=== PATIENT | female | born 1975 | race Caucasian/White ===

== ENCOUNTER → 2017-09-09 | Outpatient (CLI) | payer OTHER ==
[2017-09-09 21:02] LABS: BASO # 0.1 10^3/uL (0.0-0.2); BASO % 0.7 % (0.0-1.0); EOS # 0.3 10^3/uL (0.0-0.50); EOS % 2.3 % (0.0-3.0); IMMATURE GRANULOCYTE % 0.6 % (0-0); LYMPH # 3.1 10^3/uL (1.5-4.5); LYMPH % 28.6 % (24.0-44.0); MEAN CORPUSCULAR HEMOGLOBIN 29.5 pg (27.0-33.0); MEAN CORPUSCULAR HGB CONC 32.1 g/dl (32.0-36.5); MEAN CORPUSCULAR VOLUME 91.9 fl (80.0-96.0); MONO # 0.6 10^3/uL (0.0-0.8); MONO % 5.9 % (0.0-5.0); NEUTROPHILS # 6.7 10^3/uL (1.8-7.7); NEUTROPHILS % 61.9 % (36.0-66.0); PLATELET COUNT, AUTOMATED 366 10^3/uL (150-450); RED CELL DISTRIBUTION WIDTH 13.1 % (11.5-14.5); WHITE BLOOD COUNT 10.7 10^3/uL (4.0-10.0)
[2017-09-09 21:04] LABS: ALBUMIN 3.6 GM/DL (3.2-5.2); ALBUMIN/GLOBULIN RATIO 1.13 (1.00-1.93); ALKALINE PHOSPHATASE 87 U/L (45-117); ALT/SGPT 25 U/L (12-78); ANION GAP 6 MEQ/L (8-16); AST/SGOT 16 U/L (7-37); BILIRUBIN,TOTAL 0.2 MG/DL (0.2-1.0); BLOOD UREA NITROGEN 9 MG/DL (7-18); CALCIUM LEVEL 8.9 MG/DL (8.5-10.1); CARBON DIOXIDE LEVEL 28 MEQ/L (21-32); CHLORIDE LEVEL 107 MEQ/L (98-107); CREATININE FOR GFR 0.76 MG/DL (0.55-1.02); FERRITIN 114 NG/ML (8-252); GLOMERULAR FILTRATION RATE > 60.0 (>58); GLUCOSE, FASTING 79 MG/DL (70-105); MAGNESIUM LEVEL 2.1 MG/DL (1.8-2.4); PERCENT SATURATION 18.5 % (13.2-45.0); PHOSPHORUS LEVEL 3.4 MG/DL (2.5-4.9); SODIUM LEVEL 141 MEQ/L (136-145); TOTAL IRON BINDING CAPACITY 259 UG/DL (250-450); TOTAL PROTEIN 6.8 GM/DL (6.4-8.2)
[2017-09-09 21:12] LABS: VITAMIN B12 LEVEL > 2000 PG/ML (247-911)
== END ==
LOC: M LRY 14:08
PROVIDERS: ATTEND Surgery
DX: K91.2 Postsurgical malabsorption, not elsewhere classified (principal); Z98.84 Bariatric surgery status; E55.9 Vitamin D deficiency, unspecified

== ENCOUNTER → 2017-09-09 | Outpatient (REF) | payer OTHER | LOC: M LAB REF 09:47 | PROVIDERS: ATTEND Surgery | DX: K91.2 Postsurgical malabsorption, not elsewhere classified (principal); Z98.84 Bariatric surgery status; E55.9 Vitamin D deficiency, unspecified ==

== ENCOUNTER → 2018-01-16 | Outpatient (REF) | payer OTHER ==
[2018-01-16 14:38] LABS: FOLLICLE STIMULATING HORMONE 6.3 mIU/mL; LUTEINIZING HORMONE 5.5 mIU/mL
[2018-01-16 15:03] LABS: FREE T4 0.81 NG/DL (0.76-1.46)
[2018-01-18 00:07] LABS: TESTOSTERONE FREE (DIRECT) 2.1 pg/mL (0.0-4.2)
== END ==
LOC: M LAB REF 13:32
DX: N92.1 Excessive and frequent menstruation with irregular cycle (principal); E66.09 Other obesity due to excess calories

== ENCOUNTER → 2018-01-24 | Outpatient (CLI) | payer OTHER | LOC: M LRY 18:43 | DX: M25.511 Pain in right shoulder (principal) | CPT/HCPCS: 73030 ==

== ENCOUNTER 2018-09-19 19:49 | Emergency (ER) | payer OTHER ==
[2018-09-19] MEDS: KETOROLAC 30 MG/ML VIAL (J1885) IV (20:18)
[2018-09-19] MEDS: ONDANSETRON 4MG/2ML VIAL (J2405) IV (20:18)
[2018-09-19 20:27] LABS: BASO # 0.1 10^3/uL (0.0-0.2); BASO % 0.5 % (0.0-1.0); EOS # 0.3 10^3/uL (0.0-0.50); EOS % 1.4 % (0.0-3.0); HEMATOCRIT 46.8 % (36.0-47.0); HEMOGLOBIN 15.1 g/dl (12.0-15.5); IMMATURE GRANULOCYTE % 0.7 % (0-3.0); LYMPH # 3.2 10^3/uL (1.5-4.5); LYMPH % 17.8 % (24.0-44.0); MEAN CORPUSCULAR HEMOGLOBIN 29.4 pg (27.0-33.0); MEAN CORPUSCULAR HGB CONC 32.3 g/dl (32.0-36.5); MEAN CORPUSCULAR VOLUME 91.1 fl (80.0-96.0); MONO # 0.8 10^3/uL (0.0-0.8); MONO % 4.7 % (0.0-5.0); NEUTROPHILS # 13.5 10^3/uL (1.8-7.7); NEUTROPHILS % 74.9 % (36.0-66.0); PLATELET COUNT, AUTOMATED 379 10^3/uL (150-450); RED BLOOD COUNT 5.14 10^6/uL (4.00-5.40); RED CELL DISTRIBUTION WIDTH 13.1 % (11.5-14.5)
[2018-09-19 20:50] LABS: CONTROL LINE HCG INT CTR LINE PRESENT; HCG, SERUM QUALITATIVE NEGATIVE (NEGATIVE)
[2018-09-19 20:52] LABS: CALCIUM OXALATE CRYSTALS RFX LARGE; KETONE, URINE AUTO RFX NEGATIVE (NEGATIVE); LEUKOCYTE ESTERASE UR AUTO RFX NEGATIVE (NEGATIVE); MUCUS, URINE RFX SMALL (NEGATIVE); RBC, URINE AUTO RFX 173 /HPF (0-3); SPECIFIC GRAVITY UR AUTO RFX 1.016 (1.002-1.035); SQUAM EPITHELIAL CELL UR AURFX 5 /HPF (0-6); WBC, URINE AUTO RFX 5 /HPF (0-3)
[2018-09-19 20:58] LABS: ALBUMIN 3.9 GM/DL (3.2-5.2); ALBUMIN/GLOBULIN RATIO 1.11 (1.00-1.93); ALKALINE PHOSPHATASE 76 U/L (45-117); ALT/SGPT 24 U/L (12-78); ANION GAP 9 MEQ/L (8-16); AST/SGOT 18 U/L (7-37); BILIRUBIN,DIRECT < 0.1 MG/DL (0.0-0.2); BILIRUBIN,TOTAL 0.2 MG/DL (0.2-1.0); BLOOD UREA NITROGEN 10 MG/DL (7-18); CALCIUM LEVEL 9.2 MG/DL (8.5-10.1); CARBON DIOXIDE LEVEL 25 MEQ/L (21-32); CHLORIDE LEVEL 108 MEQ/L (98-107); CREATININE FOR GFR 1.01 MG/DL (0.55-1.30); GLOMERULAR FILTRATION RATE > 60.0 (>58); GLUCOSE, FASTING 136 MG/DL (70-100); LIPASE 127 U/L (73-393); NITRITE, URINE AUTO RFX POSITIVE (NEGATIVE); POTASSIUM SERUM 3.7 MEQ/L (3.5-5.1); SODIUM LEVEL 142 MEQ/L (136-145); TOTAL PROTEIN 7.4 GM/DL (6.4-8.2)
[2018-09-19] MEDS: CIPROFLOXACIN 500 MG TAB PO (22:03)
[2018-09-19] MEDS: PERCOCET 5MG/325MG TAB PO (22:22)
== END 2018-09-19 22:36 | disposition home or self-care (01) ==
LOC: M ED 19:49
DX: N20.1 Calculus of ureter (principal); N13.30 Unspecified hydronephrosis; N39.0 Urinary tract infection, site not specified; N23 Unspecified renal colic; R03.0 Elevated blood-pressure reading, without diagnosis of hypertension; R11.0 Nausea; K21.9 Gastro-esophageal reflux disease without esophagitis; J45.909 Unspecified asthma, uncomplicated; Z98.84 Bariatric surgery status; Z88.2 Allergy status to sulfonamides; Z79.899 Other long term (current) drug therapy
CPT/HCPCS: J2405

== ENCOUNTER → 2018-09-19 | Outpatient (REF) | payer OTHER | LOC: M SFHCLERA 17:58 | DX: N39.0 Urinary tract infection, site not specified (principal) ==

== ENCOUNTER → 2018-09-26 | Outpatient (REF) | payer OTHER ==
[2018-09-26 18:56] LABS: APPEARANCE, URINE HAZY (CLEAR); BACTERIA, URINE AUTO 1+ (NEGATIVE); BILIRUBIN, URINE AUTO NEGATIVE (NEGATIVE); BLOOD, URINE BLOOD NEGATIVE (NEGATIVE); CALCIUM OXALATE CRYSTALS SMALL; COLOR, URINE YELLOW (YELLOW); GLUCOSE, URINE (UA) AUTO NEGATIVE (NEGATIVE); KETONE, URINE AUTO NEGATIVE (NEGATIVE); LEUKOCYTE ESTERASE, URINE AUTO NEGATIVE (NEGATIVE); MUCUS, URINE SMALL (NEGATIVE); NITRITE, URINE AUTO NEGATIVE (NEGATIVE); PROTEIN, URINE AUTO NEGATIVE (NEGATIVE); RBC, URINE AUTO 5 /HPF (0-3); SPECIFIC GRAVITY URINE AUTO 1.012 (1.002-1.035); SQUAMOUS EPITHELIAL CELL UR AU 0 /HPF (0-6); UROBILINOGEN, URINE AUTO 0.2 mg/dL (0.0-2.0); WBC, URINE AUTO 1 /HPF (0-3)
== END ==
LOC: M SMT 17:20
DX: N13.2 Hydronephrosis with renal and ureteral calculous obstruction (principal)
CPT/HCPCS: 81001

== ENCOUNTER → 2019-01-27 | Outpatient (CLI) | payer OTHER ==
[~2019-01-27] MED LIST: AZO-95TA3 PO; CIPR-249 PO; FLOM0.4C39 PO; MACR100C43 PO; OXYC1TAB15 PO; PERC5TAB12 PO; VENTAER INH; ZOLO50TA PO; [UNRECOGNIZED DRUG - OTHER] PO
--- NOTE | 2019-01-28 08:59 | REPMRS ---
Patient History The patient states she had a clinical breast exam in December 2018.No known family history of cancer. Reductions of both breasts, 2001. Taking hormonal contraceptives for 4 years 6 months. 3D TOMOSYNTHESIS WAS PERFORMED. Digital Mammo Screening Bilat: January 27, 2019 - Exam #: [id number] Bilateral CC and MLO view(s) were taken. Technologist: Liyah Gutierrez, Technologist Prior study comparison: May 31, 2016, digital woman screen mammo, performed at [facility]. January 06, 2015, digital woman screen mammo, performed at [facility]. FINDINGS: There are scattered fibroglandular densities. There has been no change in the appearance of the mammogram from the prior studies. There is a mild amount of residual fibroglandular tissue which is fairly symmetric. There is no interval development of dominant mass, architectural distortion, or clustered microcalcification suggestive of malignancy. Assessment: BI-RADS/ACR category 1 mammogram. Negative Mammogram. Recommendation Routine screening mammogram in 1 year (for women over age 40). This mammogram was interpreted with the aid of an FDA-approved computer-aided dectection system. Electronically Signed By: Reinier Vidales MD 01/28/19 [id number]
== END ==
LOC: M RAD 16:58
PROVIDERS: ATTEND Obstetrics & Gynecology
DX: Z12.31 Encounter for screening mammogram for malignant neoplasm of breast (principal); Z79.3 Long term (current) use of hormonal contraceptives

== ENCOUNTER 2019-04-27 01:19 | Day surgery (SDC) | payer OTHER ==
[~2019-04-27] VITALS: Ht 162.6 cm; Wt 95.1 kg
[2019-04-27] MEDS ORDERED: NS 1,000 ML IV ONE (02:15)
[2019-04-27] MEDS ORDERED: METOCLOPRAMIDE INJ 10MG/2ML VIAL (J2765) IV ONE (02:15)
[2019-04-27] MEDS ORDERED: MORPHINE 4 MG/ML 1ML VIAL/SYRINGE (J2270) IV ONE ×2 (02:15→07:00)
[2019-04-27 02:39] LABS: BASO # 0.1 10^3/uL (0.0-0.2); BASO % 0.5 % (0.0-1.0); EOS # 0.3 10^3/uL (0.0-0.50); EOS % 1.9 % (0.0-3.0); HEMATOCRIT 43.2 % (36.0-47.0); HEMOGLOBIN 14.2 g/dl (12.0-15.5); LYMPH # 3.7 10^3/uL (1.5-4.5); LYMPH % 23.9 % (24.0-44.0); MEAN CORPUSCULAR HEMOGLOBIN 30.3 pg (27.0-33.0); MEAN CORPUSCULAR HGB CONC 32.9 g/dl (32.0-36.5); MEAN CORPUSCULAR VOLUME 92.3 fl (80.0-96.0); MONO % 6.7 % (0.0-5.0); NEUTROPHILS # 10.3 10^3/uL (1.8-7.7); PLATELET COUNT, AUTOMATED 356 10^3/uL (150-450); RED BLOOD COUNT 4.68 10^6/uL (4.00-5.40); WHITE BLOOD COUNT 15.5 10^3/uL (4.0-10.0)
[2019-04-27 02:45] LABS: ALBUMIN 3.6 GM/DL (3.2-5.2); ALT/SGPT 21 U/L (12-78); BILIRUBIN,DIRECT < 0.1 MG/DL (0.0-0.2); BILIRUBIN,TOTAL 0.2 MG/DL (0.2-1.0); BLOOD UREA NITROGEN 12 MG/DL (7-18); CALCIUM LEVEL 9.2 MG/DL (8.5-10.1); CARBON DIOXIDE LEVEL 24 MEQ/L (21-32); CHLORIDE LEVEL 108 MEQ/L (98-107); CREATININE FOR GFR 0.93 MG/DL (0.55-1.30); GLOMERULAR FILTRATION RATE > 60.0 (>58); GLUCOSE, FASTING 112 MG/DL (70-100); LIPASE 152 U/L (73-393); POTASSIUM SERUM 3.3 MEQ/L (3.5-5.1); SODIUM LEVEL 142 MEQ/L (136-145); TOTAL PROTEIN 7.2 GM/DL (6.4-8.2)
[2019-04-27 02:54] LABS: APPEARANCE, URINE HAZY (CLEAR); BACTERIA, URINE AUTO NEGATIVE (NEGATIVE); BILIRUBIN, URINE AUTO NEGATIVE (NEGATIVE); BLOOD, URINE BLOOD NEGATIVE (NEGATIVE); COLOR, URINE YELLOW (YELLOW); GLUCOSE, URINE (UA) AUTO NEGATIVE (NEGATIVE); KETONE, URINE AUTO NEGATIVE (NEGATIVE); LEUKOCYTE ESTERASE, URINE AUTO NEGATIVE (NEGATIVE); NITRITE, URINE AUTO NEGATIVE (NEGATIVE); PROTEIN, URINE AUTO NEGATIVE (NEGATIVE); RBC, URINE AUTO 3 /HPF (0-3); SPECIFIC GRAVITY URINE AUTO 1.011 (1.002-1.035); SQUAMOUS EPITHELIAL CELL UR AU 0 /HPF (0-6); UROBILINOGEN, URINE AUTO 0.2 mg/dL (0.0-2.0); WBC, URINE AUTO 0 /HPF (0-3)
[2019-04-27] MEDS ORDERED: KETOROLAC 30 MG/ML VIAL (J1885) IV ONE (03:00)
--- NOTE | 2019-04-27 03:31 | REPVR ---
EXAM: US Abdomen Limited, Right Upper Quadrant EXAM DATE/TIME: 04/27/2019 2:53 AM CLINICAL HISTORY: 44 years old, female; Abdominal pain; Acute; Additional info: Biliary/gb eval TECHNIQUE: Imaging protocol: Real-time ultrasound of the abdomen with image documentation. Examination was focused on the right upper quadrant. COMPARISON: GALLBLADDER US 11/01/2014 7:23 AM FINDINGS: Liver: Normal. No masses. Gallbladder: Gallbladder sludge, stones, and positive sonographic Pantoja's sign. Gallbladder wall is normal measuring 2.7 mm. No pericholecystic fluid. Common bile duct: Common bile duct is upper limits of normal measuring 6 mm. Pancreas: Visualized pancreas is unremarkable. Right kidney: Right kidney is unremarkable measuring 10.1 cm. IMPRESSION: Gallbladder sludge, stones, and positive sonographic Pantoja's sign. Gallbladder wall is normal measuring 2.7 mm. No pericholecystic fluid. Electronically signed by: Leyla Hancock On 04/27/2019 03:31:54 AM
[2019-04-27] MEDS ORDERED: MORPHINE 10 MG/ML 1ML VIAL (J2270) IV ONE (04:00)
[2019-04-27] MEDS ORDERED: MULTCAP PO (04:35)
[2019-04-27] MEDS ORDERED: MORPHINE 4 MG/ML 1ML VIAL/SYRINGE (J2270) IV PRN (07:45)
[2019-04-27] MEDS ORDERED: ONDANSETRON 4MG/2ML VIAL (J2405) IV PRN ×2 (07:45→22:15)
[2019-04-27] MEDS ORDERED: NORCO, ANEXSIA 5/325MG TABLET (HYDROcodone/ACETAMINOPHEN) PO PRN (07:45)
[2019-04-27] MEDS ORDERED: MORPHINE 4 MG/ML 1ML VIAL/SYRINGE (J2270) As Ordered ONE (08:00)
[2019-04-27] MEDS: LR 1,000 ML IV SCH ×3 (08:27→23:41)
[2019-04-27] MEDS ORDERED: UNASYN 3 GM VIAL As Ordered ONE (08:32)
[2019-04-27] MEDS: AMPICILLIN SOD/SULBACTAM SOD 3 GM in D5W MINI-BAG PLUS 100 ML IV SCH ×3 (08:44→20:00)
--- NOTE | 2019-04-27 09:47 | HPEPDOC ---
General Surgery H&P Date of Admission Apr 27, 2019 Attending Physician: NICOLLE WESLEY MD History and Physical CHIEF COMPLAINT: abdominal pain HISTORY OF PRESENT ILLNESS: Patient seen in the emergency department where she presented at about 2 in the morning ongoing abdominal discomfort, nausea and at least one episode of vomiting. She has a 4 or 5 year history of upper scopic gastric bypass surgery. She denies any ongoing problems with the gastric bypass. Her weight has been stable and she is gaining a little bit since the surgery. She was in her usual state of health up until about 2 in the afternoon when she started having some gas type pain as well as nausea which progressed to an epigastric and right-sided abdominal discomfort with radiation to her right back/lower scapular area and intensified through the evening and has become constant. She denies fevers or chills. She reports nausea and 1 episode of vomiting. She denies any prior episodes of biliary colic type pain or discomfort with fatty foods. In the emergency room she was evaluated and found to have evidence for gallstones as well as leukocytosis. ALLERGIES: Please see below. HOME MEDICATIONS: Please see below. PAST MEDICAL HISTORY: 1. migraine headaches. 2. gastroesophageal reflux 3. asthma 4. obesity 5. depression 6. anxiety PAST SURGICAL HISTORY: 1. Gastric Bypass 2. Breast Reduction. PERSONAL/SOCIAL HISTORY: Denies smoking, alcohol use, or recreational drug use. REVIEW OF SYSTEMS: GENERAL: Denies chills, fatigue, fever, reports mild weight gain. HEENT: Denies blurred vision and double vision. Denies ear symptoms. Denies hoarseness. NECK: Denies any neck pain. CARDIOVASCULAR: Denies chest pain and palpitations. MUSCULOSKELETAL: Denies arthralgias, back pain and thrombophlebitis. SKIN: Denies rash. NEUROLOGIC: Reports history of migraine headaches none recently. PSYCHIATRIC: Reports anxiety and depression on medication. ENDOCRINE: Denies thyroid disease. HEMATOLOGY/ONCOLOGY: Denies any bleeding or clotting disorder. HEART: Denies any chest pains, palpitations, paroxysmal dyspnea, orthopnea. PULMONARY: Denies chronic cough, dyspnea and wheezing. GASTROINTESTINAL: See HPI. GENITOURINARY: Denies dysuria, frequency, hematuria and nocturia. ENDOCRINE: Denies polydipsia, polyphagia, polyuria, heat or cold intolerance. INFECTIOUS: Denies any recent upper respiratory tract infection, UTI, need for use of antibiotics. NUTRITION: Reports good appetite. PHYSICAL EXAMINATION: VITAL SIGNS: Please see below. GENERAL APPEARANCE: Patient seen laying down on the stretcher in the emergency room, appears tired, mildly uncomfortable. On presentation reports pain of 10 out of 10. Thiamine I saw her back in the morning reports discomfort or pain at about 4 out of 10.. Awake, alert, oriented. HEENT: Normocephalic, atraumatic. [place] palpebral conjunctivae. Anicteric sclerae. Lips moist. CHEST: No chest wall abnormalities. Normal respiratory motion/effort. NECK: Supple. No thyromegaly. No lymphadenopathies. LUNGS: Lung sounds are clear to auscultation bilaterally. No wheezing appreciated. HEART: No chest wall abnormalities. Heart rate and rhythm are regular with no murmurs. ABDOMEN: Abdomen is obese, soft, slightly rounded. No hepatosplenomegaly. No umbilical or groin herniations, nondistended. She has a lower appendectomy incision that slightly scarred in but no incisional hernia. She has laparoscopic port sites from the gastric bypass surgery is well-healed. She is tender on palpation of the right subcostal area. No definite Pantoja's sign but has some mild guarding. SKIN: Warm, moist. EXTREMITIES: Extremities have no deformities. No edema identified. NEUROLOGICAL: Awake, alert, oriented. ANCILLARIES: . LABORATORY DATA: Please see below. MICROBIOLOGY: Please see below. IMAGING: US Abdomen Gallbladder sludge, stones, and positive sonographic Pantoja's sign. Gallbladder wall is normal measuring 2.7 mm. No pericholecystic fluid. IMPRESSION AND PLAN: Cholelithiasis with Acute Cholecystitis Gastric Bypass Status She has either severe biliary colic attack or early acute cholecystitis at this point she still remains symptomatic. She does have leukocytosis of 16,000. Her LFTs are normal. Her ultrasound demonstrates presence of sludge and stone. Assigned ultrasound was performed still no gallbladder wall thickening that she was positive for sonographic Pantoja sign. This goes along with the story of possibly early acute cholecystitis. I will keep her in the hospital and start her on antibiotics. I will give her Unasyn 3 g IV every 6 hours. I talked to her about performing laparoscopic cholecystectomy at this time during this admission. Ideally would want to do within the next 24 hours to limit the time of the inflammation. I spoke to her about risks and benefits of performing the surgery especially with her gastric bypass status, that the second portion of the duodenum was excluded and usually we have not able to perform a straightforward endoscopy, ERCP if need be in case of: Bile duct stone or bile duct injury. I expect some acute inflammation at the wall of the gallbladder during surgery which may make the procedure slightly higher risk for bleeding and also for bile duct injury. Patient voices understanding and we will proceed with cholecystectomy and a suitable time during this admission. For now we will keep her nothing by mouth and proceed with IV antibiotics and IV fluid hydration.. I have seen consent to perform laparoscopic cholecystectomy for her. Vital Signs Vital Signs Date Time Temp Pulse Resp B/P (MAP) Pulse Ox O2 Delivery O2 Flow Rate FiO2 04/27/19 05:34 55 96 04/27/19 05:30 18 119/69 (86) 04/27/19 04:13 97.3 04/27/19 01:25 Room Air Laboratory Data Labs 24H Laboratory Tests 2 04/27/19 01:55: Immature Granulocyte % (Auto) 1.0, White Blood Count 15.5H, Red Blood Count 4.68, Hemoglobin 14.2, Hematocrit 43.2, Mean Corpuscular Volume 92.3, Mean Corpuscular Hemoglobin 30.3, Mean Corpuscular Hemoglobin Concent 32.9, Red Cell Distribution Width 13.2, Platelet Count 356, Neutrophils (%) (Auto) 66.0, Lympho cytes (%) (Auto) 23.9L, Monocytes (%) (Auto) 6.7H, Eosinophils (%) (Auto) 1.9, Basophils (%) (Auto) 0.5, Neutrophils # (Auto) 10.3H, Lymphocytes # (Auto) 3.7, Monocytes # (Auto) 1.0H, Eosinophils # (Auto) 0.3, Basophils # (Auto) 0.1, Nucleated Red Blood Cells % (auto) 0.0, Anion Gap 10, Glomerular Filtration Rate > 60.0, Calcium Level 9.2, Aspartate Amino Transf (AST/SGOT) 13, Alanine Aminotransferase (ALT/SGPT) 21, Alkaline Phosphatase 84, Total Bilirubin 0.2, Direct Bilirubin < 0.1, Total Protein 7.2, Albumin 3.6, Albumin/Globulin Ratio 1.00, Lipase 152 04/27/19 02:12: Urine Appearance HAZY, Urine Color YELLOW, Urine pH 6.0, Urine Specific [place] 1.011, Urine Protein NEGATIVE, Urine Glucose (UA) NEGATIVE, Urine Ketones NEGATIVE, Urine Urobilinogen 0.2, Urine Bilirubin NEGATIVE, Urine Leukocyte Esterase NEGATIVE, Urine Blood NEGATIVE, Urine Nitrite NEGATIVE, Urine WBC (Auto) 0, Urine RBC (Auto) 3, Urine Hyaline Casts (Auto) 0, Urine Bacteria (Auto) NEGATIVE, Urine Squamous Epithelial Cells 0, Urine Sperm (Auto) CBC/BMP Laboratory Tests 04/27/19 01:55 Red Blood Count 4.68, Mean Corpuscular Volume 92.3, Mean Corpuscular Hemoglobin 30.3, Mean Corpuscular Hemoglobin Concent 32.9, Red Cell Distribution Width 13.2, Neutrophils (%) (Auto) 66.0, Lymphocytes (%) (Auto) 23.9 L, Monocytes (%) (Auto) 6.7 H, Eosinophils (%) (Auto) 1.9, Basophils (%) (Auto) 0.5, Neutrophils # (Auto) 10.3 H, Lymphocytes # (Auto) 3.7, Monocytes # (Auto) 1.0 H, Eosinophils # (Auto) 0.3, Basophils # (Auto) 0.1 Microbiology Microbiology 04/27/19 Urine Culture, Received Pending Home Medications Scheduled Multivitamin (Multivitamins) 1 Each Capsule, 1 CAP PO DAILY, (Reported) Sertraline Hcl (Zoloft) 50 Mg Tab, 100 MG PO QHS, (Reported) Allergies Coded Allergies: Sulfa (Sulfonamide Antibiotics) (Verified Allergy, Intermediate, 04/27/19) rash A-FIB/CHADSVASC A-FIB History Current/History of A-Fib/PAF?: No Current PO Anticoag Therapy: NICOLLE Ballesteros MD Apr 27, 2019 07:26
[2019-04-27 11:02] LABS: URINE PREG TEST NEGATIVE (NEGATIVE)
[2019-04-27 12:45] VITALS: BP 134/82
[2019-04-27 16:30] VITALS: BP 117/73
[2019-04-27] MEDS ORDERED: FLUORESCEIN 10% (100MG/ML) 5 ML VIAL As Ordered ONE (19:18)
[2019-04-27] MEDS ORDERED: BUPIVACAINE HCL 0.25% 30 ML VIAL As Ordered ONE (19:18)
[2019-04-27] MEDS ORDERED: LIDOCAINE 1% SDV INJ 30 ML VIAL As Ordered ONE (19:18)
[2019-04-27] MEDS ORDERED: PROPOFOL 200 MG/20 ML VIAL As Ordered ONE (19:53)
[2019-04-27] MEDS ORDERED: ONDANSETRON 4MG/2ML VIAL (J2405) As Ordered ONE ×2 (19:53→22:27)
[2019-04-27] MEDS ORDERED: ROCURONIUM BROMIDE 50 MG/5 ML VIAL As Ordered ONE ×2 (19:53→21:07)
[2019-04-27] MEDS ORDERED: KETAMINE HCL 200 MG/20 ML VIAL As Ordered ONE (19:53)
[2019-04-27] MEDS ORDERED: fentaNYL 250 MCG/5 ML INJECTION (J3010) As Ordered ONE (19:53)
[2019-04-27] MEDS ORDERED: KETOROLAC 60 MG/2 ML VIAL (J1885) As Ordered ONE (19:53)
[2019-04-27] MEDS ORDERED: LIDOCAINE 2% INJ 100 MG/5 ML SDV (FOR ANES.) As Ordered ONE (19:53)
[2019-04-27] MEDS ORDERED: MIDAZOLAM INJ 2 MG/2 ML VIAL (J2250) As Ordered ONE (19:53)
[2019-04-27] MEDS ORDERED: SERTRALINE HCL 50 MG TAB PO SCH (21:00)
[2019-04-27] MEDS ORDERED: ACETAMINOPHEN 1000MG 100ML IV BTL (OFIRMEV) (J0131 PER 10MG) As Ordered ONE (21:01)
[2019-04-27] MEDS ORDERED: NEOSTIGMINE 10 MG/10 ML VIAL (J2710) As Ordered ONE (21:22)
[2019-04-27] MEDS ORDERED: GLYCOPYRROLATE INJ 0.2 MG/ML 2 ML VIAL As Ordered ONE ×2 (21:22→21:23)
[2019-04-27] MEDS ORDERED: LR 1,000 ML IV SCH (22:15)
[2019-04-27] MEDS ORDERED: PERCOCET 5MG/325MG TAB PO PRN (22:15)
[2019-04-27] MEDS ORDERED: fentaNYL 100 MCG/2 ML INJECTION (J3010) IV PRN (22:15)
[2019-04-27] MEDS ORDERED: HYDROMORPHONE HCL 0.5 MG/ 0.5 ML SYRINGE (J1170 PER 1) IV PRN (22:15)
[2019-04-27] MEDS ORDERED: METOCLOPRAMIDE INJ 10MG/2ML VIAL (J2765) As Ordered ONE (22:50)
[2019-04-27] MEDS ORDERED: METOCLOPRAMIDE INJ 10MG/2ML VIAL (J2765) IV PRN (23:00)
[2019-04-27] MEDS ORDERED: PERCOCET 5MG/325MG TAB As Ordered ONE (23:10)
[2019-04-27 23:45] VITALS: BP 142/74
[2019-04-28] VITALS (7 sets, daily range): BP systolic 118–147; BP diastolic 58–81
[2019-04-28] MEDS: AMPICILLIN SOD/SULBACTAM SOD 3 GM in D5W MINI-BAG PLUS 100 ML IV SCH ×3 (01:53→13:22)
--- NOTE | 2019-04-28 05:48 | ROOPDOC ---
[facility] Report Of Operation Report of Operation DATE OF PROCEDURE: 04/27/19 PREPROCEDURE DIAGNOSES: Acute Cholecystitis. POSTPROCEDURE DIAGNOSES: Acute Cholecystitis. PROCEDURE: Robotic Assisted Laparoscopic Cholecystectomy. SURGEON: Antonino Rebolledo MD IP ARCHITECT: ANESTHESIA: General Anesthesia. ESTIMATED BLOOD LOSS: Approximately 50 mL. COMPLICATIONS: none. REMARKS: 44 year old female admitted overnight for sudden onset of right upper quadrant pain. PROCEDURE NOTE: markedly distended gallbladder with moderate acute inflammarion of the gallbladder wall, remains thin walled but a lot of perichoelcystic fluid and perichoelcystic wall edema. I used ICG dye to try to visualize course of the cystic duct but with the acute cholecystitis/cystic duct obstruction, cystic duct does not illuminate well with firefly. DESCRIPTION OF PROCEDURE: Patient was given a been receiving Unasyn 3 g IV every 6 hrs for Acute Cholecystitis. . She was given a dose of ICG 5 mg IV with 10 mL NS flush 45 minutes prior to the procedure. She was brought to the operating room, laid supine on the table, compression boots placed for DVT prophylaxis. General endotracheal anesthesia started. Her abdomen then prepped and draped in usual sterile fashion. We paused for a surgical timeout using both pre-incision safety checklist to verify correct patient, procedure site and additional clinical information prior to beginning the procedure. Entry to the abdomen done through a small incision at the left upper quadrant area. A Veress needle is inserted on a controlled fashion. CO2 insufflation started to pressure 15 mmHg. Using the same incision a 8 mm optical trocar was then placed under direct vision of laparoscope. The insertion site was inspected for injury and none was found. Patient was then positioned on a reverse trendelenburg position with her right side tilted up to further expose the gallbladder and gallbladder fossa and retract the bowels away from the area. I then placed 3 working ports under direct vision just to the left of the umbilicus and in a straight line at the right midclavicular area and right anterior axillary line in an oblique direction to triangulate the gallbladder and line up the instrument ports. The da Taylor Xi robotic tower was then maneuvered in place, the trochars were docked onto the robotic arms, the camera and instruments and up for the procedure. Operative findings: On entry was noted that her gallbladder appears tensely distended and acutely inflamed with edematous gallbladder wall with bile staining of the wall. There is also serous fluid surrounding the gallbladder. There is some both chronic and acute omental adhesions around the gallbladder and also towards the falciform ligament and anterior abdominal wall from her previous gastric bypass surgery. The omental adhesions were brought down to further expose the body of the gallbladder with sharp dissection using the Bovie cautery. The fundus of the gallbladder was grasped and the gallbladder was elevated superiorly exposing the lower body and neck of the gallbladder. The peritoneum overlying the area was opened up and dissected free both anteriorly and posteriorly to help with retraction of the gallbladder. The hepatocystic triangle was approached and dissected using a forced bipolar instrument and robotic hook cautery. The cystic duct was identified coming off from the neck gallbladder this was circumferentially dissected. The cystic artery was identified in its usual position medially behind a small lymph node of [place]. This was similarly circumferentially dissected off surrounding adipose tissue. To apoint, I continued posterior dissection proximally at the neck of the gallbladder to clear the previously described tubular structures but due to the amount of distention and associated acute inflammation the cystic plate behind the gallbladder was fully cleared but I was comfortable with the view and was able to get to a critical view of safety identifying the cystic duct and artery both anteriorly and posteriorly. I switched views with firefly to determine and visualized the course of the cystic duct but due to the cystic duct obstruction and acute cholecystitis this did not transilluminate as well though there are specks of green on the previously identified cystic duct. At this point the cystic artery was clipped 2 times and divided. When I divided the cystic artery to lower Hemoclip came undone. I controlled the cystic artery stump to place another Hemoclip. After again checking her anatomy and verifying that the previously identified cystic duct with firefly view, this was also clipped 3 times and divided (2 hemoclips downstream and one Hemoclip upstream). The rest of the gallbladder was then dissected free of the gallbladder bed using Bovie cautery. There were no severe bleeding there continues losing both serosanguineous fluid and generalized oozing at the liver bed which usually stops after a while. [place] through dissection the gallbladder at the fundus had small amount of bile leaking out. The gallbladder was detached from the liver plate and placed into an Endobag. I scrubbed back in. The gallbladder was extracted from the umbilical port site with slight blunt enlargement of the trocar site using Lore forceps. After re-insufflation I inspected the clips and noted this to be in place. No further bleeding noted at the liver bed. The abdomen was irrigated and the bile that leaked during dissection of the gallbladder was suctioned. The clip that fell off in the cystic artery was retrieved. The abdomen was deflated all ports were removed. The umbilical fascial defect repaired with 0 Vicryl in a mattress fashion. Rest of the skin incisions closed with 4-0 Monocryl in subcuticular fashion. Dermabond was used to cover the port site incisions Patient was awakened, extubated and brought to recovery room stable. ANTONINO REBOLLEDO MD Apr 28, 2019 05:48
[2019-04-28 06:20] LABS: HEMATOCRIT 40.8 % (36.0-47.0); HEMOGLOBIN 13.2 g/dl (12.0-15.5); MEAN CORPUSCULAR HGB CONC 32.4 g/dl (32.0-36.5); MEAN CORPUSCULAR VOLUME 92.7 fl (80.0-96.0); PLATELET COUNT, AUTOMATED 249 10^3/uL (150-450); WHITE BLOOD COUNT 11.9 10^3/uL (4.0-10.0)
[2019-04-28 06:42] LABS: ALBUMIN 2.9 GM/DL (3.2-5.2); ALT/SGPT 395 U/L (12-78); BILIRUBIN,TOTAL 0.8 MG/DL (0.2-1.0); BLOOD UREA NITROGEN 9 MG/DL (7-18); CALCIUM LEVEL 8.3 MG/DL (8.5-10.1); CARBON DIOXIDE LEVEL 23 MEQ/L (21-32); CHLORIDE LEVEL 106 MEQ/L (98-107); CREATININE FOR GFR 0.87 MG/DL (0.55-1.30); GLOMERULAR FILTRATION RATE > 60.0 (>58); GLUCOSE, FASTING 137 MG/DL (70-100); POTASSIUM SERUM 4.4 MEQ/L (3.5-5.1); SODIUM LEVEL 139 MEQ/L (136-145); TOTAL PROTEIN 6.7 GM/DL (6.4-8.2)
[2019-04-28] MEDS: NORCO, ANEXSIA 5/325MG TABLET (HYDROcodone/ACETAMINOPHEN) PO PRN ×2 (08:36→12:38)
[2019-04-28] MEDS: LR 1,000 ML IV SCH (08:42)
[2019-04-28 14:48] LABS: ALBUMIN 3.1 GM/DL (3.2-5.2); BILIRUBIN,DIRECT 0.2 MG/DL (0.0-0.2); BILIRUBIN,TOTAL 0.6 MG/DL (0.2-1.0); TOTAL PROTEIN 6.6 GM/DL (6.4-8.2)
[2019-04-28] MEDS ORDERED: CIPR500T3 PO (14:54)
[2019-04-28] MEDS ORDERED: HYDR-4571 PO (14:54)
[2019-04-28] MEDS ORDERED: METR-265 PO (14:54)
== END 2019-04-28 15:37 | disposition home or self-care (01) ==
LOC: M ED 01:19 → M SDC 07:41 → M PED 12:45 → M SDC 04-28 15:37
PROVIDERS: ATTEND Surgery
DX: K80.00 Calculus of gallbladder with acute cholecystitis without obstruction (principal); J45.909 Unspecified asthma, uncomplicated; K21.9 Gastro-esophageal reflux disease without esophagitis; E66.9 Obesity, unspecified; F41.9 Anxiety disorder, unspecified; Z88.2 Allergy status to sulfonamides; Z98.84 Bariatric surgery status
CPT/HCPCS: 36415; 47562; 76705; 80048; 80053; 80076; 81001; 83690; 84703; 85025; 85027; 87086; 88304; 96360; 96361; 96365; 96366; 96375; 96376; 99285; J0131; J1885; J2250; J2270; J2405; J2710; J2765; J3010

== ENCOUNTER → 2019-05-04 | Outpatient (CLI) | payer OTHER ==
[~2019-05-04] MED LIST changes: +CIPR500T3 PO; +HYDR-4571 PO; +METR-265 PO; +MULTCAP PO
[2019-05-04 10:09] LABS: ALBUMIN 3.6 GM/DL (3.2-5.2); BILIRUBIN,DIRECT 0.1 MG/DL (0.0-0.2); BILIRUBIN,TOTAL 0.3 MG/DL (0.2-1.0); TOTAL PROTEIN 6.9 GM/DL (6.4-8.2)
== END ==
LOC: M LAB 08:32
PROVIDERS: ATTEND Surgery
DX: K80.80 Other cholelithiasis without obstruction (principal)

== ENCOUNTER → 2019-05-12 | Outpatient (CLI) | payer OTHER ==
--- NOTE | 2019-05-12 12:44 | REP ---
Left foot four views: Mineralization and joint spaces are normal. There is no fracture or dislocation. There is a tiny calcaneal plantar spur. There is no Achilles spur. The calcaneus is otherwise unremarkable. Impression: Tiny calcaneal plantar spur. Otherwise, negative left foot. Electronically Signed by Reinier Lock MD 05/12/2019 12:35 P
== END ==
LOC: M LRY 11:55
PROVIDERS: ATTEND Family Medicine
DX: M25.572 Pain in left ankle and joints of left foot (principal)

== ENCOUNTER → 2019-12-30 | Outpatient (CLI) | payer OTHER ==
[2019-12-30 11:55] LABS: HEMATOCRIT 43.7 % (36.0-47.0); MEAN CORPUSCULAR HEMOGLOBIN 29.6 pg (27.0-33.0); MEAN CORPUSCULAR VOLUME 92.4 fl (80.0-96.0); PLATELET COUNT, AUTOMATED 362 10^3/uL (150-450); RED BLOOD COUNT 4.73 10^6/uL (4.00-5.40); WHITE BLOOD COUNT 7.6 10^3/uL (4.0-10.0)
[2019-12-30 12:14] LABS: HEMOGLOBIN A1c 5.6 %
[2019-12-30 12:31] LABS: ALBUMIN 3.6 GM/DL (3.2-5.2); ALT/SGPT 25 U/L (12-78); BILIRUBIN,TOTAL 0.4 MG/DL (0.2-1.0); BLOOD UREA NITROGEN 10 MG/DL (7-18); CALCIUM LEVEL 9.3 MG/DL (8.5-10.1); CARBON DIOXIDE LEVEL 30 MEQ/L (21-32); CHLORIDE LEVEL 105 MEQ/L (98-107); CHOLESTEROL LEVEL 219 MG/DL (<200); CHOLESTEROL RISK RATIO 5.615 (<5); CREATININE FOR GFR 0.76 MG/DL (0.55-1.30); GLOMERULAR FILTRATION RATE > 60.0 (>58); GLUCOSE, FASTING 83 MG/DL (70-100); HDL CHOLESTEROL 39 MG/DL (>40); LDL CHOLESTEROL 138 MG/DL (<100); NON-HDL-C 180 MG/DL; POTASSIUM SERUM 4.3 MEQ/L (3.5-5.1); SODIUM LEVEL 139 MEQ/L (136-145); TOTAL 25(OH) VITAMIN D 32.2 NG/ML (30.0-100.0); TOTAL PROTEIN 6.9 GM/DL (6.4-8.2); TRIGLYCERIDES LEVEL 211 MG/DL (<150)
== END ==
LOC: M LRY 09:43
PROVIDERS: ATTEND Family Medicine
DX: I10 Essential (primary) hypertension (principal); E11.9 Type 2 diabetes mellitus without complications; R53.83 Other fatigue

== ENCOUNTER 2020-12-19 18:16 | Inpatient (IN) | payer OTHER ==
[~2020-12-19] VITALS: Ht 162.6 cm; Wt 101.6 kg
--- OUTSIDE RECORDS SUMMARY | 2020-12-19 18:23 | CCD ---
Author Author [facility] Organization [facility] Address Unknown Phone Unavailable Care Team Providers Care Animal Husbandman Name Role Phone RING, K NAOMI PA Unavailable Unavailable RING, K NAOMI PA Unavailable Unavailable RING, K NAOMI PA Unavailable Unavailable RING, K NAOMI PA Unavailable Unavailable RING, K NAOMI PA Unavailable Unavailable RING, K NAOMI PA Unavailable Unavailable RING, K NAOMI PA Unavailable Unavailable RING, K NAOMI PA Unavailable Unavailable RING, K NAOMI PA Unavailable Unavailable RING, K NAOMI PA Unavailable Unavailable RING, K NAOMI PA Unavailable Unavailable RING, K NAOMI PA Unavailable Unavailable RING, K NAMOI PA Unavailable Unavailable RING, K NAOMI PA Unavailable Unavailable RING, K NAOMI PA Unavailable Unavailable RING, K NAOMI PA Unavailable Unavailable RING, K NAOMI PA Unavailable Unavailable RING, K NAOMI PA Unavailable Unavailable RING, K NAOMI PA Unavailable Unavailable RING, K NAOMI PA Unavailable Unavailable RING, K NAOMI PA Unavailable Unavailable Re-disclosure Warning The records that you are about to access may contain information from federally-assisted alcohol or drug abuse programs. If such information is present, then the following federally mandated warning applies: This information has been disclosed to you from records protected by federal confidentiality rules (42 CFR part 2). The federal rules prohibit you from making any further disclosure of this information unless further disclosure is expressly permitted by the written consent of the person to whom it pertains or as otherwise permitted by 42 CFR part 2. A general authorization for the release of medical or other information is NOT sufficient for this purpose. The Federal rules restrict any use of the information to criminally investigate or prosecute any alcohol or drug abuse patient.The records that you are about to access may contain highly sensitive health information, the redisclosure of which is protected by Article 27-F of the [facility] Public Health law. If you continue you may have access to information: Regarding HIV / AIDS; Provided by facilities licensed or operated by the [facility] Office of Mental Health; or Provided by the [facility] Office for People With Developmental Disabilities. If such information is present, then the following [facility] mandated warning applies: This information has been disclosed to you from confidential records which are protected by state law. State law prohibits you from making any further disclosure of this information without the specific written consent of the person to whom it pertains, or as otherwise permitted by law. Any unauthorized further disclosure in violation of state law may result in a fine or [place] [facility] sentence or both. A general authorization for the release of medical or other information is NOT sufficient authorization for further disc losure. Allergies and Adverse Reactions Type Description Substance Reaction Status Data Source(s ) environmental indoor/outdoor environmental indoor/outdoor en vironmental indoor/outdoor rhinorrhea Active eCW1 ([facility]) Sulfa (for allergy use only) Sulfa (for allergy use only) Mancuso lfa (for allergy use only) Hives Active eCW1 ([facility]) Family History Family Member Name Family Member Gender Family Member Status Date o f Status Description Data Source(s) Unknown Male Problem MEDENT ([facility]) Unknown Male Problem MEDENT ([facility]) Unknown Unknown Problem MEDENT ([facility]) Unknown Unknown Problem MEDENT ([facility]) Encounters Encounter Providers Location Date Indications Data Source(s ) Outpatient Attender: NAOMI Wong Primary 12/19/2020 04:30:00 PM EST MEDENT ([facility], [facility]) [facility] [address] [address] 12/08/2019 12:00:00 AM EST eCW1 ([facility]) Insurance Providers Payer name Policy type / Coverage type Policy ID Covered constitution party ID Covered constitution party's relationship to malone Policy Malone Plan Information R [facility] [id number] SP [id number] R O [id number] S [id number] R [facility] [id number] 2 [id number] r Commercial [id number] Family Dependent [id number] [facility] [id number] [facility] [id number] ANSI-Commercial [id number] ANSI-Commercial [id number] ANSI-Commercial [id number] ANSI-Commercial [id number] ANSI-Commercial [id number] ANSI-Commercial [id number] [employer] (pr) Commercial [id number] [employer] [id number] [employer] Commercial Family Dependent [employer] [id number] Spo [id number] Surgeries/Procedures Procedure Description Date Indications Data Source(s) Influenza A+B 12/08/2019 12:00:00 AM EST eCW1 ([facility]) Results ID Date Data Source [id number] 08/23/2020 12:00:00 AM EDT [facility] Don Nicolasgladis ROBLEDO Patient Name: SHERMAN FRAUSTO [facility] Date of : 1975[place] [address] Date of Exam: 08/23/2020#: Fax: [phone] EXAM: MAMMO SCREENING WITH CADCLINICAL INFORMATION: Screening.Based on the personal and family history information your patient suppliedat the time of imaging, her lifetime risk of breast cancer estimated by theTyrer-Cuzick model is 11.3%. Given that this patient has less than 20% TCrisk score, no further medical management is currently recommended at thistime.Digital screening (2D) mammography was performed bilaterally in the CC andMLO projections. Ad ditionally, breast tomosynthesis (3D mammography) wasperformed bilaterally in the CC and MLO projections. Today's exam wascompared to the prior exam(s).By history, the patient has no complaints of a palpable breast abnormalityor other significant breast complaints.The patient states last clinical breast exam was in May of 2020.The breasts are unchanged in size and shape. There are no soha-soft tissuedensities or spiculated masses. There is no internal architecturaldistortion. There are no suspicious soha-calcific clusters. Skinthickening or nipple retraction is not present. Benign calcifications areagain seen bilaterally.The Volpara volumetric breast density category is B, there are scatteredareas of fibroglandular density.IMPRESSION:BI-RADS Category 2 - Benign Finding(s). Stable mammogram. There is noevidence of malignant alteration of the breasts. Followup examinationrecommended in one year.This mammogram was read with the assistance of Jeffery URIBE, an FDAapproved computer aided detection system for mammography.Negative x-ray reports should not delay surgical consultation if a dominantor clinically suspicious mass is present.Not all breast cancers can be identified by mammography. Therefore, werecommend that you continue to perform regular breast self-examination andphysical examination and then promptly contact your physician of anyconcerns or changes.Adenosis and dense breasts may obscure an underlying neoplasm.TALA Marinelli/Thalia you for referring NAOMI FRAUSTO to our office.Electronically Signed - DEEPAK CREWS DO 08/24/20 14:37 Name Value Range Interpretation Code Description Data Saniya rce(s) Supporting Document(s) Procedure Vital Signs ID Date Data Source UNK Name Value Range Interpretation Code Description Data Source(s) Body mass index (BMI) [Ratio] 34.3 kg/m2 34.3 k g/m2 [facility] ([facility], [facility]) Body height 64 [in_i] 64 [in_i] [facility] ([facility], [facility]) 5'4" Body weight 200.00 [lb_av] 200.00 [lb_av] MEDEN T ([facility], [facility]) Body temperature 97.1 [degF] 97.1 [degF] [facility] ([facility]) Oxygen saturation in Arterial blood by Pulse oximetry 98 % 98 % [facility] ([facility]) Respiratory rate 13 /min 13 /min [facility] ( [facility], [facility]) Heart rate 65 /min 65 /min [facility] ([facility], [facility]) Diastolic blood pressure 91 mm[Hg] 91 mm[Hg] [facility] ([facility], [facility]) Systolic blood pressure 145 mm[Hg] 145 mm[Hg] M EDENT ([facility]) Diastolic blood pressure 81 mm[Hg] 81 mm[Hg] eCW1 ([facility]) Systolic blood pressure 114 mm[Hg] 114 mm[Hg] e CW1 ([facility]) Body temperature 99.3 [degF] 99.3 [degF] eCW1 ( [facility]) Respiratory rate 18 /min 18 /min eCW1 ([facility]) Heart rate 95 /min 95 /min eCW1 ([facility]) Body mass index (BMI) [Ratio] 36.01 kg/m2 36.01 kg/m2 eCW1 ([facility]) Body height 64 [in_us] 64 [in_us] eCW1 ([facility]) Body weight Measured 209.8 [lb_av] 209.8 [lb_av ] eCW1 ([facility])
[2020-12-19] MEDS ORDERED: SERTRALINE (18:24)
[2020-12-19 20:23] LABS: BASO # 0.1 10^3/uL (0.0-0.2); BASO % 0.7 % (0.0-1.0); EOS # 0.2 10^3/uL (0.0-0.5); EOS % 2.1 % (0.0-3.0); HEMATOCRIT 42.3 % (36.0-47.0); HEMOGLOBIN 13.6 g/dl (12.0-15.5); LYMPH # 3.1 10^3/uL (1.5-5.0); LYMPH % 30.8 % (24.0-44.0); MEAN CORPUSCULAR HGB CONC 32.2 g/dl (32.0-36.5); MEAN CORPUSCULAR VOLUME 90.2 fl (80.0-96.0); MONO # 0.6 10^3/uL (0.0-0.8); MONO % 6.4 % (2.0-8.0); NEUTROPHILS # 5.9 10^3/uL (1.5-8.5); NEUTROPHILS % 59.3 % (36.0-66.0); PLATELET COUNT, AUTOMATED 328 10^3/uL (150-450); RED BLOOD COUNT 4.69 10^6/uL (4.00-5.40)
[2020-12-19 20:40] LABS: INR 0.99; PARTIAL THROMBOPLASTIN TIME 29.7 SECONDS (24.2-38.5); PROTHROMBIN TIME 13.3 SECONDS (12.5-14.3)
--- NOTE | 2020-12-19 20:41 | REPVR ---
PROCEDURE INFORMATION: Exam: US Duplex Right Upper Extremity Veins, Limited Exam date and time: 12/19/2020 7:47 PM Age: 45 years old Clinical indication: Pain; Arm, upper; Right; Additional info: R/O dvt TECHNIQUE: Imaging protocol: Real-time Duplex ultrasound of the Right Upper Extremity with 2-D dooley scale, color Doppler flow and spectral waveform analysis with image documentation. Limited exam focused on the right upper extremity veins. COMPARISON: No relevant prior studies available. FINDINGS: Right deep veins: The distal right subclavian and proximal axillary veins are occluded. The right brachial vein is patent. Normal Doppler waveforms. Normal compressibility and/or augmentation response. Right superficial veins: Visualized cephalic and basilic veins are patent without thrombus. Soft tissues: Edema. 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 Electronically signed by: Elza Ybarra On 12/19/2020 20:41:38 PM
[2020-12-19 20:49] LABS: BLOOD UREA NITROGEN 9 MG/DL (7-18); C REACTIVE PROTEIN QUANTITATIV 0.94 MG/DL (0.00-0.30); CALCIUM LEVEL 9.2 MG/DL (8.5-10.1); CARBON DIOXIDE LEVEL 28 MEQ/L (21-32); CHLORIDE LEVEL 104 MEQ/L (98-107); CREATININE FOR GFR 0.81 MG/DL (0.55-1.30); GLOMERULAR FILTRATION RATE > 60.0 (>58); GLUCOSE, FASTING 91 MG/DL (70-100); POTASSIUM SERUM 3.8 MEQ/L (3.5-5.1); SODIUM LEVEL 139 MEQ/L (136-145)
[2020-12-19 21:00] LABS: ERYTHROCYTE SEDIMENTATION RATE 20 mm/hr (0-20)
[2020-12-19] MEDS ORDERED: ISOVUE-370 76% 100ML VIAL As Ordered ONE (21:11)
--- OUTSIDE RECORDS SUMMARY | 2020-12-19 21:29 | CCD ---
Author Author [facility] Organization [facility] Address Unknown Phone Unavailable Care Team Providers Care Bindery Machine Operator Name Role Phone RING, K NAOMI PA [...] is protected by Article 27-F of the [facility] Public Health law. If you continue you may have access to information: Regarding HIV / AIDS; Provided by facilities licensed or operated by the [facility] Office of Mental Health; or Provided by the [facility] Office for People With Developmental Disabilities. If such information is present, then the following [facility] mandated warning applies: This information has been [...] law may result in a fine or correction sentence or both. A general authorization for the release of medical or other information is NOT sufficient authorization for further disc losure. Allergies and Adverse Reactions Type Description Substance Reaction Status Data Source(s ) environmental indoor/outdoor environmental indoor/outdoor en vironmental indoor/outdoor rhinorrhea Active eCW1 ([facility]) Sulfa (for allergy use only) Sulfa (for allergy use only) Mancuso lfa (for allergy use only) Hives Active eCW1 ([facility]) Family History Family Member Name Family Member Gender Family Member Status Date o f Status Description Data Source(s) Unknown Male Problem MEDENT ([facility]) Unknown Male Problem MEDENT ([facility]) Unknown Unknown Problem MEDENT ([facility]) Unknown Unknown Problem MEDENT ([facility], [facility]) Encounters Encounter Providers Location Date Indications Data Source(s ) Outpatient Attender: NAOMI Wong Primary 12/19/2020 04:30:00 PM EST MEDENT ([facility], [facility]) [facility] [address] [address] 12/08/2019 12:00:00 AM EST eCW1 ([facility]) Insurance Providers Payer name Policy type / Coverage type Policy ID Covered green party ID Covered green party's relationship to malone Policy Malone Plan Information R [facility] [id number] SP [id number] R O [id number] S [id number] R [facility] [id number] r Commercial [id number] Family Dependent [id number] [facility] [id number] [facility] [id number] ANSI-Commercial [id number] ANSI-Commercial [id number] ANSI-Commercial [id number] ANSI-Commercial [id number] ANSI-Commercial [id number] ANSI-Commercial [id number] [employer] (pr) Commercial [id number] [employer] [id number] [employer] Commercial Family Dependent [employer] [id number] Spo [id number] Surgeries/Procedures Procedure Description Date Indications Data Source(s) Influenza A+B 12/08/2019 12:00:00 AM EST eCW1 ([facility]) Results ID Date Data Source [id number] 08/23/2020 12:00:00 AM EDT [facility] Don Nicolasgladis ROBLEDO Patient Name: SHERMAN FRAUSTO [facility] Date of : 1975[place] [address] Date of Exam: 08/23/2020#: Fax: [phone] EXAM: [...] (BMI) [Ratio] 34.3 kg/m2 34.3 k g/m2 [facility] ([facility], [facility]) Body height 64 [in_i] 64 [in_i] [facility] ([facility], [facility]) 5'4" Body weight 200.00 [lb_av] 200.00 [lb_av] MEDEN T ([facility], [facility]) Body temperature 97.1 [degF] 97.1 [degF] [facility] ([facility]) Oxygen saturation in Arterial blood by Pulse oximetry 98 % 98 % [facility] ([facility]) Respiratory rate 13 /min 13 /min [facility] ( [facility], [facility]) Heart rate 65 /min 65 /min [facility] ([facility], [facility]) Diastolic blood pressure 91 mm[Hg] 91 mm[Hg] [facility], [facility]) Systolic blood pressure 145 mm[Hg] 145 mm[Hg] M EDENT ([facility]) Diastolic blood pressure 81 mm[Hg] 81 mm[Hg] eCW1 ([facility]) Systolic blood pressure 114 mm[Hg] 114 mm[Hg] e CW1 ([facility]) Body temperature 99.3 [degF] 99.3 [degF] eCW1 ( [facility]) Respiratory rate 18 /min 18 /min eCW1 ([facility]) Heart rate 95 /min 95 /min eCW1 ([facility]) Body mass index (BMI) [Ratio] 36.01 kg/m2 36.01 kg/m2 eCW1 ([facility]) Body height 64 [in_us] 64 [in_us] eCW1 ([facility]) Body weight Measured 209.8 [lb_av] 209.8 [lb_av ] eCW1 ([facility])
--- NOTE | 2020-12-19 21:56 | REPVR ---
PROCEDURE INFORMATION: Exam: CT Angiography Chest With Contrast Exam date and time: 12/19/2020 9:17 PM Age: 45 years old Clinical indication: Condition or disease; Other: Dvt; Additional info: R/O pe, R subclavian/proximal axillary dvt TECHNIQUE: Imaging protocol: Computed tomographic angiography of the chest with contrast. 3D rendering (Not supervised by radiologist): MIP and/or 3D reconstructed images were created by the technologist. Radiation optimization: All CT scans at this facility use at least one of these dose optimization techniques: automated exposure control; mA and/or kV adjustment per patient size (includes targeted exams where dose is matched to clinical indication); or iterative reconstruction. Contrast material: ISOVUE 370; Contrast volume: 100 ml; Contrast route: INTRAVENOUS (IV); COMPARISON: No relevant prior studies available. FINDINGS: Pulmonary arteries: There is no evidence of filling defects within the pulmonary arterial circulation to suggest pulmonary embolism. Aorta: Unremarkable. No aortic aneurysm. No aortic dissection. Lungs: No focal lung consolidation. Pleural spaces: No pleural effusion. Heart: No cardiomegaly. No pericardial effusion. Lymph nodes: Unremarkable. No enlarged lymph nodes. Stomach and bowel: Evidence of gastric surgery and cholecystectomy. No further significant findings in the upper abdomen. Bones/joints: Unremarkable. No acute fracture. Soft tissues: Calcifications are seen in the right breast. There is soft tissue stranding in the right axilla surrounding the axillary vein. IMPRESSION: No evidence of pulmonary emboli or pneumonia. Electronically signed by: Elza Ybarra On 12/19/2020 21:56:47 PM
[2020-12-19] MEDS ORDERED: MAALOX 30 ML SUSP *UDC PO PRN (23:15)
[2020-12-19] MEDS ORDERED: ACETAMINOPHEN TAB 650MG DOSE (2X325MG) PO PRN (23:15)
[2020-12-19] MEDS ORDERED: MOM 30ML SUSPENSION UDC PO PRN (23:15)
[2020-12-19] MEDS ORDERED: HEPARIN SOD (PORCINE) 5000UNITS/ML 1ML VIAL/SYRINGE IV PRN (23:30)
--- NOTE | 2020-12-19 23:30 | HPEPDOC ---
[facility] Medical History & Physical Date of Admission Dec 19, 2020 Date of Service: Dec 19, 2020 Primary Care Physician: Cherie Davis MD Attending Physician: YON JUAREZ MD History and Physical CHIEF COMPLAINT: RUE Swelling HISTORY OF PRESENT ILLNESS: Patient is a 45-year-old female with a past medical history significant depression/anxiety and obesity s/p gastric bypass who presented to the emergency department on the evening of 12/19/20 with a chief complaint of an onset right upper extremity swelling in the setting of diffuse tenderness with slight purple discoloration for 24 hours. Patient reports that she first began noticing the discoloration and pain yesterday evening after spending number of hours clearing snow from her roof. Nizatidine direct trauma to her arm shoulder or chest. In the emergency department, patient's vitals were found to be stable. CBC was unremarkable. BMP without any significant abnormalities. CRP was elevated at 0.94 PT/INR of 13.3/0.99. In the setting of patient's physical exam findings, an ultrasound of the upper extremity was ordered which indicated occlusion of the right distal subclavian and proximal axillary veins. Follow-up CTA of the chest was negative for any pulmonary emboli. The hospitalist team was contacted to admit the patient for further management and observation. PAST MEDICAL HISTORY: Depression with anxiety History of kidney stones History of UTI PAST SURGICAL HISTORY: Gastric bypass, approximately 6 years ago Cholecystectomy, approximately 2-3 years ago SOCIAL HISTORY: Marital status: Resides in: [facility] with her Children: 2 children, ages 10 and 12 Employment: Patient works in education Tobacco use: Denies any tobacco use ETOH: Denies any alcohol use Illicit drug use: Denies any illicit or IV drug use FAMILY HISTORY: Father: Esophageal cancer Mother: This reports mother is healthy without any medical conditions Children: Patient has 2 children, both are healthy Hereditary Diseases: Patient denies any known hereditary diseases including cancers other than her father's. No history of bleeding disorders. ALLERGIES: Seasonal allergies, rhinorhea Sulfonamides, hives. REVIEW OF SYSTEMS: CONSTITUTIONAL: Has any recent fevers, chills, changes in weight, no recent fatigue or night sweats HEENT: Has any headaches, vision or hearing changes. Denies any difficulty swallowing. CARDIOVASCULAR: Denies chest pain, palpitations or an appropriate tachycardia RESPIRATORY: Denies any shortness of breath coming a cough or wheeze. GASTROINTESTINAL: Denies any nausea or vomiting, abdominal pain or discomfort. No constipation or diarrhea. No black tarry stools, hematochezia GENITOURINARY: Denies any hematuria SKIN: As mentioned in HPI, patient reports a 24-hour history of right upper extremity discoloration beginning of the shoulder area extending down to her fingertips. This has somewhat improved since began yesterday. MUSCULOSKELETAL: Able to move NEUROLOGICAL: Poor intermittent paresthesias of the right upper extremity yesterday which have since resolved today and at the time of examination. PSYCHIATRIC: Reports baseline levels of depression and anxiety, adequately con trolled with SSRI HEMATOLOGIC: Patient denies any history of bleeding disorders or coagulopathies. No family history. HOME MEDICATIONS: Please see below. PHYSICAL EXAMINATION: VITAL SIGNS: Please see below GENERAL APPEARANCE: She was interviewed and examined in the emergency department. She was found to be resting comfortably in bed. No acute distress. Able to answer questions regarding her medical history actively participate in examination. HEENT: Normocephalic, atraumatic, EOMI, sclera nonicteric, mucous membranes moist, , no cervical lymphadenopathy, no scalene trapezius muscle spasm. CARDIOVASCULAR: Rate and rhythm, normal S1 and S2 without any appreciable murmur LUNGS: Auscultation bilaterally ABDOMEN: Soft, nontender, nondistended EXTREMITIES: Upper extremity is mildly swollen, nontender, slightly cool with purple discoloration. H&H is able to move the extremity without any difficulty. Radial pulse is 2+, distal sensation is intact. Motor function also intact. Left upper extremity is within normal limits. No lower extremity swelling or edema. NEUROLOGICAL: Alert and oriented 3 PSYCHIATRIC: Affect are appropriate LABORATORY DATA: See below. IMAGING: CT angiography of the chest (12/19/20): No evidence of pulmonary emboli or pneumonia Upper extremity ultrasound (12/19/20): Occlusion of the distal right subclavian and proximal axillary veins. ASSESSMENT: Patient is a 45-year-old female, past medical history significant for obesity status post gastric bypass, depression and anxiety, who presented to emergency department on 12/19/20 complaining of a 24-hour history of right upper extremity swelling with purplish discoloration. Patient reports that this did occur after spending numerous hours outside clearing snow off of her roof. Patient denies any trauma to the area. No personal or family history of coagulopathies. Ultrasound was performed that did demonstrate occlusion of the right subclavian and proximal axillary veins. A CTA of the chest was negative for PE. Given patient's reported history of prolonged overhead physical activity, suspect possibility of Paget-Schroetter syndrome. Emergency department, an outpatient coagulopathy workup was ordered and remains pending. Patient will be admitted to the hospital and started on a heparin drip close monitoring per protocol. PLAN: #Right upper extremity DVT -Distal CSM function fully intact. Slight discoloration without pain to palpation. -Given patient's reported history of symptoms beginning after clearing snow from her roof, question possibility of Paget-Schroetter syndrome; though no distinct anatomic abnormalities were noted on CT imaging of the patient's chest. -Other etiologies include antiphospholipid syndrome and cancer-related coagu lability. Patient is not only utilizing OCPs or hormonal IUD, urine test ordered and pending. -Treatment to include IV heparin gtt, Q6H PTT -Monitoring for bleeding per protocol -Follow Hypercoagulable workup as ordered in the emergency department -Recommend vascular consultation to discuss possibility of thrombolysis #Depression last anxiety -Continue home SSRI #Obesity, Class II s/p gastric bypass -Complicated hospital care -Obtain hemoglobin A1c, patient denies any personal or family history of diabetes -Encourage regular physical activity #Right breast calcifications -Suggest outpatient follow-up with mammogram DVT PROPHYLAXIS: IV Heparin Vital Signs Vital Signs Date Time Temp Pulse Resp B/P (MAP) Pulse Ox O2 Delivery O2 Flow Rate FiO2 12/19/20 22:16 64 18 100 Room Air 12/19/20 22:00 163/101 (121) 12/19/20 18:17 99.1 Laboratory Data Labs 24H Laboratory Tests 2 12/19/20 20:01: Immature Granulocyte % (Auto) 0.7, Neutrophils (%) (Auto) 59.3, Lymphocytes (%) (Auto) 30.8, Monocytes (%) (Auto) 6.4, Eosinophils (%) (Auto) 2.1, Basophils (%) (Auto) 0.7, Neutrophils # (Auto) 5.9, Lymphocytes # (Auto) 3.1, Monocytes # (Auto) 0.6, Eosinophils # (Auto) 0.2, Basophils # (Auto) 0.1, Nucleated Red Blood Cells % (auto) 0.0, Erythrocyte Sedimentation Rate 20, Prothrombin Time 13.3, Prothromb Time International Ratio 0.99, Activated Partial Thromboplast Time 29.7, Anion Gap 7L, Glomerular Filtration Rate > 60.0, Calcium Level 9.2, C-Reactive Protein, Quantitative 0.94H 12/19/20 21:07: 12/19/20 21:08: 12/19/20 21:37: CBC/BMP Laboratory Tests 12/19/20 20:01 Home Medications Scheduled Cyanocobalamin (Vitamin B-12) (Vitamin B-12) 500 Mcg Tablet, 500 MCG PO QHS Fexofenadine/Pseudoephedrine (Angela-D 24 Hour Tablet) 1 Each Tab.er.24h, 1 TAB PO QHS Folic Acid/Multivit-Min/Lutein (Multi-Vitamin Gummies) 1 Each Tab.chew, 2 CHW PO QHS Sertraline Hcl (Zoloft) 100 Mg Tablet, 100 MG PO QHS Scheduled PRN Acetaminophen (Tylenol Extra Strength) 500 Mg Tablet, 1,000 MG PO Q6H PRN for PAIN / FEVER Allergies Coded Allergies: Sulfa (Sulfonamide Antibiotics) (Verified Allergy, Intermediate, 04/27/19) rash A-FIB/CHADSVASC A-FIB History Current/History of A-Fib/PAF?: No GME ATTESTATION GME ATTESTATION My faculty preceptor for this patient encounter was physically present during the encounter and was fully available. All aspects of the patient interview, examination, medical decision making process, and medical care plan development were reviewed and approved by the faculty preceptor. The faculty preceptor is aware and concurs with the plan as stated in the body of this note and will attest to such by his/her cosignature. ATTENDING NOTE TIME OF SERVICE 1105PM is a 45 yr old F w a hx of asthma, anxiety, GERD and gastricbypass who suddenly developed RUE swelling yesterday after cleaning snow off her roof. She denies having any trauma to her arm, falling, using any hormonal contraceptives or a family hx of clots. Her father had gastric cancer. PE: RUE purplish in color, swollen and slightly cool when compared to LUE US "FINDINGS: Right deep veins: The distal right subclavian and proximal axillary veins are occluded. The right brachial vein is patent. Normal Doppler waveforms. Normal compressibility and/or augmentation response. Right superficial veins: Visualized cephalic and basilic veins are patent without thrombus. " CTA "FINDINGS: Pulmonary arteries: There is no evidence of filling defects within the pulmonary arterial circulation to suggest pulmonary embolism. Aorta: Unremarkable. No aort ic aneurysm. No aortic dissection. Lungs: No focal lung consolidation. Pleural spaces: No pleural effusion. Heart: No cardiomegaly. No pericardial effusion. Lymph nodes: Unremarkable. No enlarged lymph nodes. Stomach and bowel: Evidence of gastric surgery and cholecystectomy. No further significant findings in the upper abdomen. Bones/joints: Unremarkable. No acute fracture. Soft tissues: Calcifications are seen in the right breast. There is soft tissue stranding in the right axilla surrounding the axillary vein." # DVT affecting distal right subclavian and proximal axillary veins DVT in the upper extremities are unusual. In her case her right arm is also purplish in color and slightly cool to touch but the pulses are still intact, the arm is soft and she doesn't have severe kirk n therefore she doesn't have co-existing compartment syndrome. There were no mentions of bony abnormalities of the clavicle or rib bones which can contribute to UE DVT. We should rule out malignancy (GI, , renal and brain malignancies are contraindications to using DOAC), (CI to DOAC) & triple neg antiphospholipid antibody syndrome (a CI to using a DOAC) as possible causes. Plan: admit to medical floor / start heparin drip / will ask the day time team to consult to confirm that she is not a candidate for thrombolysis / f/u hyper-coagulable work-up (although this work-up is usually done in the out patient setting the blood work was ordered in ER before the patient was started on AC) / will ask the day time team to consider calling Heme/Onc to ask if the patient should also have a CT of the abdomen to r/o GI/ malignancy in the morning # Right Breast Calcifications Visualized on CTA of the chest Plan: day time team can discuss if US +/- Mammogram with Heme/Onc should be done on this admission or an an out patient basis #Obesity BMI of 38.7 complicates care s/p gastricbypass Plan: f/u A1C and with PCP & Bariatric surgeon as scheduled rest per 's H&P CAIN PICKARD DO Dec 19, 2020 23:30 YON JUAREZ MD Dec 20, 2020 01:04
--- NOTE | 2020-12-19 23:37 | IPNPDOC ---
Text Note Date of Service The patient was seen on 12/19/20. NOTE TIME OF SERVICE 1105PM is a 45 yr old F w a hx of asthma, anxiety, GERD and gastricbypass who suddenly developed RUE swelling yesterday after cleaning snow off her roof. She denies having any trauma to her arm, falling, using any hormonal contraceptives or a family hx of clots. Her father had gastric cancer. PE: RUE purplish in color, swollen and slightly cool when compared to LUE US "FINDINGS: Right deep veins: The distal right subclavian and proximal axillar y veins are occluded. The right brachial vein is patent. Normal Doppler waveforms. Normal compressibility and/or augmentation response. Right superficial veins: Visualized cephalic and basilic veins are patent without thrombus. " CTA "FINDINGS: Pulmonary arteries: There is no evidence of filling defects within the pulmonary arterial circulation to suggest pulmonary embolism. Aorta: Unremarkable. No aortic aneurysm. No aortic dissection. Lungs: No focal lung consolidation. Pleural spaces: No pleural effusion. Heart: No cardiomegaly. No pericardial effusion. Lymph nodes: Unremarkable. No enlarged lymph nodes. Stomach and bowel: Evidence of gastric surgery and cholecystectomy. No further significant findings in the upper abdomen. Bones/joints: Unremarkable. No acute fracture. Soft tissues: Calcifications are seen in the right breast. There is soft tissue stranding in the right axilla surrounding the axillary vein." # DVT affecting distal right subclavian and proximal axillary veins DVT in the upper extremities are unusual. In her case her right arm is also purplish in color and slightly cool to touch but the pulses are still intact, the arm is soft and she doesn't have severe pain therefore she doesn't have co-existing compartment syndrome. There were no mentions of bony abnormalities of the clavicle or rib bones which can contribute to UE DVT. We should rule out malignancy (GI, , renal and brain malignancies are contraindications to using DOAC), (CI to DOAC) & triple neg antiphospholipid antibody syndrome (a CI to using a DOAC) as possible causes. Plan: admit to medical floor / start heparin drip / will ask the day time team to consult to confirm that she is not a candidate for thrombolysis / f/u hyper-coagulable work-up (although this work-up is usually done in the out patient setting the blood work was ordered in ER before the patient was started on AC) / will ask the day time team to consider calling Heme/Onc to ask if the patient should also have a CT of the abdomen to r/o GI/ malignancy in the morning # Right Breast Calcifications Visulaized on CTA of the chest Plan: day time team can discuss if US +/- Mammogram with Heme/Onc should be done on this admission or an an out patient basis #Obesity BMI of 38.7 complicates care s/p gastricbypass Plan: f/u A1C and with PCP & Bariatric surgeon as scheduled rest per 's H&P VS,Fishbone, I+O VS, Fishbone, I+O Laboratory Tests 12/19/20 20:01 Vital Signs Date Time Temp Pulse Resp B/P (MAP) Pulse Ox O2 Delivery O2 Flow Rate FiO2 12/19/20 22:16 64 18 100 Room Air 12/19/20 22:00 163/101 (121) 12/19/20 18:17 99.1 YON JUAREZ MD Dec 19, 2020 23:37
--- OUTSIDE RECORDS SUMMARY | 2020-12-19 23:51 | CCD ---
Author Author [facility] Organization [facility] Address Unknown Phone Unavailable Care Team Providers Care Induction Brazer Name Role Phone RING, K NAOMI PA [...] Unavailable RING, K NAOMI PA Unavailable Unavailable SYSTEM IN, NOT IN PROVIDER Unavailable Unavailable Re-disclosure Warning The records that [...] is protected by Article 27-F of the [facility] Public Health law. If you continue you may have access to information: Regarding HIV / AIDS; Provided by facilities licensed or operated by the [facility] Office of Mental Health; or Provided by the [facility] Office for People With Developmental Disabilities. If such information is present, then the following [facility] mandated warning applies: This information has [...] law may result in a fine or fdc sentence or both. A general authorization for the release of medical or other information is NOT sufficient authorization for further disc losure. Allergies and Adverse Reactions Type Description Substance Reaction Status Data Source(s ) environmental indoor/outdoor environmental indoor/outdoor en vironmental indoor/outdoor rhinorrhea Active eCW1 ([facility]) Sulfa (for allergy use only) Sulfa (for allergy use only) Mancuso lfa (for allergy use only) Hives Active eCW1 ([facility]) Family History Family Member Name Family Member Gender Family Member Status Date o f Status Description Data Source(s) Unknown Male Problem MEDENT ([facility]) Unknown Male Problem MEDENT ([facility]) Unknown Unknown Problem MEDENT ([facility] Unknown Unknown Problem MEDENT ([facility]) Encounters Encounter Providers Location Date Indications Data Source(s ) Outpatient Referrer: PROVIDER SYSTEM [place] 12/19/2020 1 0:10:00 PM EST RUE vascular occlusions [facility] RUE vascular occlusions Outpatient Attender: NAOMI Wong [facility] 12/19/2020 04:30:00 PM EST MEDENT ([facility]) [facility] [address] [place] [address] 12/08/2019 12:00:00 AM EST eCW1 ([facility]) Insurance Providers Payer name Policy type / Coverage type Policy ID Covered republican ID Covered republican's relationship to malone Policy Malone Plan Information UMR [facility] [id number] SP [id number] UMR O [id number] S [id number] [facility] [id number] HU2 [id number] Umr Commercial [id number] Family Dependent [id number] UMR [facility] [id number] HU2 [id number] ANSI-Commercial [id number] ANSI-Commercial [id number] ANSI-Commercial [id number] ANSI-Commercial [id number] ANSI-Commercial [id number] ANSI-Commercial [id number] [employer] (pr) Commercial [id number] [employer] [id number] [id number] [employer] Commercial Family Dependent [employer] [id number] [id number] Problems, Conditions, and Diagnoses Code Display Name Description Problem Type Effective Dates Data Source(s) RUE vascular occlusions RUE vascular occlusions Diagno sis 12/19/2020 10:10:00 PM EST [facility] Surgeries/Procedures Procedure Description Date Indications Data Source(s) Influenza A+B 12/08/2019 12:00:00 AM EST eCW1 ([facility]) Results ID Date Data Source [id number] 08/23/2020 12:00:00 AM EDT [facility] Don Hoffmann DO Patient Name: NAOMI FRAUSTO[facility] Date of : 1975[place] [address] Date of Exam: 08/23/2020PH#: Fax: [phone] EXAM: MAMMO SCREENING WITH CADCLINICAL [...] was read with the assistance of Jeffery Telunjuk, an FDAapproved computer aided detection system for [...] (BMI) [Ratio] 34.3 kg/m2 34.3 k g/m2 [facility] ([facility]) Body height 64 [in_i] 64 [in_i] [facility] ([facility]) 5'4" Body weight 200.00 [lb_av] 200.00 [lb_av] MEDEN T ([facility]) Body temperature 97.1 [degF] 97.1 [degF] [facility] ([facility]) Oxygen saturation in Arterial blood by Pulse oximetry 98 % 98 % [facility] ([facility]) Respiratory rate 13 /min 13 /min [facility] ( [facility]) Heart rate 65 /min 65 /min [facility] ([facility]) Diastolic blood pressure 91 mm[Hg] 91 mm[Hg] MEDENT ([facility]) Systolic blood pressure 145 mm[Hg] 145 mm[Hg] M EDENT ([facility], [facility]) Diastolic blood pressure 81 mm[Hg] 81 mm[Hg] eCW1 ([facility]) Systolic blood pressure 114 mm[Hg] 114 mm[Hg] e CW1 ([facility]) Body temperature 99.3 [degF] 99.3 [degF] eCW1 ( [facility]) Respiratory rate 18 /min 18 /min eCW1 ([facility]) Heart rate 95 /min 95 /min eCW1 ([facility]) Body mass index (BMI) [Ratio] 36.01 kg/m2 36.01 kg/m2 eCW1 ([facility]) Body height 64 [in_us] 64 [in_us] eCW1 ([facility]) Body weight Measured 209.8 [lb_av] 209.8 [lb_av ] eCW1 ([facility]) ID Date Data Source [id number] 12/19/2020 11:44:42 PM [facility] Hospital Name Value Range Interpretation Code Description Data Source(s) TRANSFER FROM [facility]
[2020-12-19] MEDS ORDERED: MULTCHW12 PO (23:53)
[2020-12-19] MEDS ORDERED: ACET-897 PO (23:53)
[2020-12-19] MEDS ORDERED: CYAN500T3 PO (23:53)
[2020-12-19] MEDS ORDERED: ZOLO100T PO (23:53)
[2020-12-19] MEDS ORDERED: ALLE24TA7 PO (23:53)
[2020-12-20] MEDS: HEPARIN DRIP 25,000 UNITS in IV 1 EA IV SCH ×2 (00:11→15:46)
[2020-12-20 00:54] LABS: HCG, SERUM QUALITATIVE NEGATIVE (NEGATIVE)
[2020-12-20 01:33] LABS: RSV AMPLIFICATION NEGATIVE (NEGATIVE)
[2020-12-20 02:40] VITALS: BP 186/88
[2020-12-20 04:00] VITALS: BP 138/88
[2020-12-20 06:00] VITALS: BP 138/80
[2020-12-20 06:48] LABS: HEMATOCRIT 38.6 % (36.0-47.0); HEMOGLOBIN 12.7 g/dl (12.0-15.5); MEAN CORPUSCULAR HEMOGLOBIN 29.6 pg (27.0-33.0); MEAN CORPUSCULAR HGB CONC 32.9 g/dl (32.0-36.5); PLATELET COUNT, AUTOMATED 303 10^3/uL (150-450); RED BLOOD COUNT 4.29 10^6/uL (4.00-5.40); WHITE BLOOD COUNT 9.7 10^3/uL (4.0-10.0)
[2020-12-20 07:22] LABS: ALBUMIN 3.4 GM/DL (3.2-5.2); ALT/SGPT 33 U/L (12-78); BILIRUBIN,TOTAL 0.2 MG/DL (0.2-1.0); BLOOD UREA NITROGEN 8 MG/DL (7-18); CALCIUM LEVEL 8.9 MG/DL (8.5-10.1); CARBON DIOXIDE LEVEL 26 MEQ/L (21-32); CHLORIDE LEVEL 106 MEQ/L (98-107); CREATININE FOR GFR 0.76 MG/DL (0.55-1.30); GLOMERULAR FILTRATION RATE > 60.0 (>58); GLUCOSE, FASTING 99 MG/DL (70-100); POTASSIUM SERUM 3.9 MEQ/L (3.5-5.1); SODIUM LEVEL 140 MEQ/L (136-145); TOTAL PROTEIN 6.5 GM/DL (6.4-8.2)
[2020-12-20] MEDS: DOCUSATE SODIUM 100MG CAPSULE PO SCH ×2 (09:00→21:00)
[2020-12-20] MEDS: SERTRALINE 100 MG TAB PO SCH (09:27)
[2020-12-20] MEDS: CYANOCOBALAMIN 500 MCG TAB PO SCH (09:27)
[2020-12-20 10:47] LABS: HEMOGLOBIN A1c 5.2 %
--- NOTE | 2020-12-20 12:47 | CR.PDOC ---
General Date of Consultation: Dec 20, 2020 Consultation REASON FOR CONSULTATION/CHIEF COMPLAINT: Right arm swelling and discoloration HISTORY OF PRESENT ILLNESS: This is a very pleasant 45-year-old patient with no personal history or family history of hypercoagulable state, blood clots, DVT, or bleeding disorders, who noticed right upper extremity swelling Saturday evening after some strenuous activity raking snow off the roof. The patient typically does not do strenuous activity that requires her to have her arms overhead for long periods of time, but after doing so on this occasion she noticed swelling in her right upper extremity. She came to the ER due to reddish purple discoloration over her arm and swelling in her face. She was admitted yesterday and a venous duplex revealed a thrombus in the right axillary and subclavian vein extending into the jugular vein. CTA of the chest did not reveal any anatomic abnormalities nor any thrombus in the arterial system, no PE noted. The patient has been on a heparin drip overnight and we were consulted for further management. I discussed with the patient that I think this is an effort thrombosis of her axillary vein/subclavian vein. Since this isn't unusual activity for the patient, I told her we may be able to successfully treat her with a minimally invasive option. First, thrombolysis to remove the clot, and then gentle angioplasty to see if we can improve her outflow through the thoracic outlet. If thrombosis recurs, she may need evaluation for first rib resection, but I do not think this will be necessary at this time. I went over the risks benefits and alternatives to right upper extremity venogram and thrombolysis. Patient has no recent history of surgery, falls, MVC, trauma, altercations, head injuries, strokes, nose bleeds, bleeding from her gums, hematemesis, hematuria, hematochezia, hemoptysis. She has no known history of intracranial hemorrhage or brain aneurysms. She has no history of cancer or tumors. She has no history of heavy bleeding with her periods. She is now 2 days status post her period on this cycle. I think she is low risk for bleeding comp lication with catheter directed TPA. After extensive discussion of the risks alternatives and benefits, including the alternative to continue on anticoagulation only, and the alternative to be seen in an institution for higher level of care for thrombolysis and rib resection, the patient felt trying the minimally invasive approach with TPA and angioplasty would be her best option. The patient was agreeable to proceed and informed consent was obtained. We will add her on for this afternoon. She did have a breakfast damage at breakfast, but has not eaten since. I have made her nothing by mouth. We will continue her heparin drip on the floor and discontinue it when the patient arrives in IR. ALLERGIES: Please see below. HOME MEDICATIONS: Please see below. PAST MEDICAL HISTORY: Kidney stones, anxiety, endometriosis PAST SURGICAL HISTORY: Cholecystectomy, uterine ablation, breast reduction, gastric bypass FAMILY HISTORY: Cancer, no history of bleeding or clotting disorders SOCIAL HISTORY: , 2 kids, denies tobacco alcohol or illicit drug use REVIEW OF SYSTEMS: CONSTITUTIONAL: Denies fevers or chills HEENT: Denies vision or hearing changes CARDIOVASCULAR: Denies chest pain RESPIRATORY: Denies shortness of breath GENITOURINARY: Denies dysuria, but history of UTI and kidney stones MUSCULOSKELETAL: Positive swelling right upper extremity denies claudication GASTROINTESTINAL: Denies nausea vomiting diarrhea SKIN: Denies rashes. Positive discoloration right upper extremity NEUROLOGICAL: Denies headache seizures strokes PSYCHIATRIC: Positive anxiety ENDOCRINE: Denies diabetes or thyroid disease HEMATOLOGIC/LYMPHATIC: Denies bleeding or clotting disorders ALLERGIC/IMMUNOLOGIC: Denies PHYSICAL EXAMINATION: VITAL SIGNS: Please see below. GENERAL APPEARANCE: Medically stable, no acute distress HEENT: Normocephalic, TMI, vision grossly intact RESPIRATORY: Clear to auscultation bilaterally CARDIOVASCULAR: Regular rate and rhythm ABDOMEN: Soft nontender EXTREMITIES: Distal pulses intact all 4 extremities. Right upper extremity has moderate swelling compared to the left. There is still some reddish discoloration, although the per the patient is dramatically improving now that she is on anticoagulation. Her arm is appropriately elevated above the level of her heart. NEUROLOGICAL: Alert and oriented 3 moves all extremities equally PSYCHIATRIC: Pleasant and cooperative. Asks appropriate questions. LABORATORY DATA: Please see below. ASSESSMENT/PLAN: 1. Keep patient nothing by mouth. Plan for right upper extremity venogram and possible thrombolysis this afternoon as an add-on case. Consent is on the chart. We will discontinue the heparin drip when the patient arrives [facility]. 2. Plan for ICU postop. Plan for repeat venogram tomorrow morning, likely around 11 AM, with possible angioplasty at that time. We appreciate the opportunity to participate in the care of this patient. Vital Signs/I&O Vital Signs Date Time Temp Pulse Resp B/P (MAP) Pulse Ox O2 Delivery O2 Flow Rate FiO2 12/20/20 06:00 97.4 72 19 138/80 (99) 98 Room Air I&O- Last 24 Hours up to 6 AM 12/20/20 06:00 Intake Total 30 ml Output Total 600 ml Balance -570 ml Laboratory Data Labs 24H Laboratory Tests 2 12/19/20 20:01: Immature Granulocyte % (Auto) 0.7, Neutrophils (%) (Auto) 59.3, Lymphocytes (%) (Auto) 30.8, Monocytes (%) (Auto) 6.4, Eosinophils (%) (Auto) 2.1, Basophils (%) (Auto) 0.7, Neutrophils # (Auto) 5.9, Lymphocytes # (Auto) 3.1, Monocytes # (Auto) 0.6, Eosinophils # (Auto) 0.2, Basophils # (Auto) 0.1, Nucleated Red Blood Cells % (auto) 0.0, Erythrocyte Sedimentation Rate 20, Prothrombin Time 13.3, Prothromb Time International Ratio 0.99, Activated Partial Thromboplast Time 29.7, Anion Gap 7L, Glomerular Filtration Rate > 60.0, Calcium Level 9.2, C-Reactive Protein, Quantitative 0.94H, Human Chorionic Gonadotropin, Qual NEGATIVE 12/19/20 21:07: 12/19/20 21:08: 12/19/20 21:37: 12/19/20 23:34: Activated Partial Thromboplast Time 29.7 12/20/20 00:24: Coronavirus (COVID-19)(PCR) NEGATIVE, Influenza Type A (RT-PCR) NEGATIVE, Influenza Type B (RT-PCR) NEGATIVE, Respiratory Syncytial Virus (PCR) NEGATIVE 12/20/20 06:21: Activated Partial Thromboplast Time 73.2H, Nucleated Red Blood Cells % (auto) 0.0, Anion Gap 8, Glomerular Filtration Rate > 60.0, Estimated Mean Plasma Glucose 103, Hemoglobin A1c 5.2, Calcium Level 8.9, Total Bilirubin 0.2, Aspartate Amino Transf (AST/SGOT) 18, Alanine Aminotransferase (ALT/SGPT) 33, Alkaline Phosphatase 95, Total Protein 6.5, Albumin 3.4, Albumin/Globulin Ratio 1.1L 12/20/20 12:15: CBC/BMP Laboratory Tests 12/19/20 20:01 12/20/20 06:21 Allergies Coded Allergies: Sulfa (Sulfonamide Antibiotics) (Verified Allergy, Intermediate, 04/27/19) rash Home Medications Scheduled Cyanocobalamin (Vitamin B-12) (Vitamin B-12) 500 Mcg Tablet, 500 MCG PO QHS, (Reported) Fexofenadine/Pseudoephedrine (Angela-D 24 Hour Tablet) 1 Each Tab.er.24h, 1 TAB PO QHS, (Reported) Folic Acid/Multivit-Min/Lutein (Multi-Vitamin Gummies) 1 Each Tab.chew, 2 CHW PO QHS, (Reported) Sertraline Hcl (Zoloft) 100 Mg Tablet, 100 MG PO QHS, (Reported) Scheduled PRN Acetaminophen (Tylenol Extra Strength) 500 Mg Tablet, 1,000 MG PO Q6H PRN for PAIN / FEVER, (Reported) TAURUS JONES MD Dec 20, 2020 12:47
[2020-12-20 14:00] VITALS: BP 137/90
--- NOTE | 2020-12-20 14:47 | IPNPDOC ---
Subjective Date Seen The patient was seen on 12/20/20. Subjective Chief Complaint/HPI Facial swelling has improved, Her redness and swelling of the arm is also better Objective Physical Examination General Exam: Positive: Alert, Cooperative, No Acute Distress Eye Exam: Positive: PERRLA, Conjunctiva & lids normal, EOMI; Negative: Sclera icteric ENT Exam: Positive: Atraumatic, Mucous membr. moist/pink, Pharynx Normal Neck Exam: Positive: Supple Chest Exam: Positive: Clear to auscultation, Normal air movement Heart Exam: Positive: Rate Normal, Regular Rhythm, Normal S1, Normal S2; Negative: Murmurs, Rubs Abdomen Exam: Positive: Normal bowel sounds, Soft; Negative: Tenderness, Hepatospenomegaly Extremity Exam: Positive: Swelling, Other (erythema of the right arm and mild swelling of the right upper extremity); Negative: Cyanosis, Edema Neuro Exam: Positive: Normal Gait, Normal Speech, Cranial Nerves 3-12 NL, Reflexes 2+ Psych Exam: Positive: Mental status NL, Mood NL, Oriented x 3 Assessment /Plan Assessment Patient is a 45-year-old female with a past medical history significant depression/anxiety and obesity s/p gastric bypass, kidney stones, who presented to the emergency department on the evening of 12/19/20 with a chief complaint of an onset right upper extremity and face swelling in the setting of diffuse tenderness with slight purple discoloration for 24 hours. She was found to have thrombosis of right axillary and right subclavian artery. Effort thrombosis of her right distal subclavian and proximal axillary veins After raking snow from the roof after a prolonged period. No personal or family h/o thrombosis int he past continue heparin gtt consulted Vascular for localized intracatheter thrombolysis and angioplasty on 12/20/20 If this fails and she continues to have thrombosis then may need first rib resection. NPO Depression last anxiety Continue home SSRI Plan/VTE VTE Prophylaxis Ordered?: Yes VS, I&O, 24H, [place] Vital Signs/I&O Vital Signs Date Time Temp Pulse Resp B/P (MAP) Pulse Ox O2 Delivery O2 Flow Rate FiO2 12/20/20 06:00 97.4 72 19 138/80 (99) 98 Room Air I&O- Last 24 Hours up to 6 AM 12/20/20 05:59 Intake Total 30 ml Output Total 600 ml Balance -570 ml Laboratory Data 24H LABS Laboratory Tests 2 12/19/20 20:01: Immature Granulocyte % (Auto) 0.7, Neutrophils (%) (Auto) 59.3, Lymphocytes (%) (Auto) 30.8, Monocytes (%) (Auto) 6.4, Eosinophils (%) (Auto) 2.1, Basophils (%) (Auto) 0.7, Neutrophils # (Auto) 5.9, Lymphocytes # (Auto) 3.1, Monocytes # (Auto) 0.6, Eosinophils # (Auto) 0.2, Basophils # (Auto) 0.1, Nucleated Red Blood Cells % (auto) 0.0, Erythrocyte Sedimentation Rate 20, Prothrombin Time 13.3, Prothromb Time International Ratio 0.99, Activated Partial Thromboplast Time 29.7, Anion Gap 7L, Glomerular Filtration Rate > 60.0, Calcium Level 9.2, C-Reactive Protein, Quantitative 0.94H, Human Chorionic Gonadotropin, Qual NEGATIVE 12/19/20 21:07: 12/19/20 21:08: 12/19/20 21:37: 12/19/20 23:34: Activated Partial Thromboplast Time 29.7 12/20/20 00:24: Coronavirus (COVID-19)(PCR) NEGATIVE, Influenza Type A (RT-PCR) NEGATIVE, Influenza Type B (RT-PCR) NEGATIVE, Respiratory Syncytial Virus (PCR) NEGATIVE 12/20/20 06:21: Activated Partial Thromboplast Time 73.2H, Nucleated Red Blood Cells % (auto) 0.0, Anion Gap 8, Glomerular Filtration Rate > 60.0, Estimated Mean Plasma Glucose 103, Hemoglobin A1c 5.2, Calcium Level 8.9, Total Bilirubin 0.2, Aspartate Amino Transf (AST/SGOT) 18, Alanine Aminotransferase (ALT/SGPT) 33, Alkaline Phosphatase 95, Total Protein 6.5, Albumin 3.4, Albumin/Globulin Ratio 1.1L 12/20/20 12:15: Activated Partial Thromboplast Time 80.3H CBC/BMP Laboratory Tests 12/19/20 20:01 12/20/20 06:21 ANDREA MORROW MD Dec 20, 2020 14:47
[2020-12-20] MEDS ORDERED: MIDAZOLAM INJ 2MG/2ML VIAL (J2250 PER 1MG) As Ordered ONE (16:26)
[2020-12-20] MEDS ORDERED: fentaNYL 100 MCG/2 ML INJECTION (J3010) As Ordered ONE (16:26)
[2020-12-20] MEDS ORDERED: LIDOCAINE 1% MDV 20ML VIAL As Ordered ONE (16:27)
[2020-12-20] MEDS ORDERED: ISOVUE-300 61% 50ML VIAL As Ordered ONE (16:27)
[2020-12-20] MEDS ORDERED: ALTEPLASE 2MG/2ML VIAL As Ordered ONE (16:43)
[2020-12-20] MEDS ORDERED: HEPARIN DRIP 25,000 UNITS in IV 1 EA IV SCH (17:00)
[2020-12-20] MEDS ORDERED: ALTEPLASE RECOMBINANT 25 MG in NS 225 ML IV SCH (17:00)
[2020-12-20] MEDS ORDERED: VANCOMYCIN 1000MG/20ML VIAL As Ordered ONE (17:07)
--- NOTE | 2020-12-20 17:59 | ROOPDOC ---
[facility] Report Of Operation Report of Operation DATE OF PROCEDURE: 12/20/20 PREPROCEDURE DIAGNOSES: Thrombosis right axillary and subclavian veins POSTPROCEDURE DIAGNOSES: Same PROCEDURE: 1. Ultrasound-guided access right basilic vein 2. Right upper extremity venogram and central venogram 3. Cross occlusion right axillary and subclavian veins and superior vena cava gram 4. Placement of a 20 cm infusion length TPA thrombolysis catheter SURGEON: Taurus Alonso MD ANESTHESIA: Local anesthesia 5 mL lidocaine. Moderate intravenous conscious sedation was supervised by Dr. Alonso. The patient was independently monitored by registered nurse assigned to the Department of radiology using automated blood pressure, EKG, and pulse oximetry. The detailed sedation record is permanently stored in the hospital information system. The following is a brief sedation record: Start time 17:06, stop time 17:44, Versed 1 mg IV, fentanyl 50 g IV, vancomycin 1 g IV. CONTRAST: 27 mL Isovue-300 INDICATION FOR PROCEDURE: This is a very pleasant 45-year-old patient with right axillary and subclavian vein after thrombosis after raking snow off her roof on Saturday. Her arm got progressively more swollen painful and red and she was admitted and appropriately placed on a heparin drip. I discussed the risks benefits and alternatives to a thrombolysis followed by planned repeat venogram tomorrow and potential angioplasty and she is agreeable to proceed. Informed consent was obtained. INTERPRETATION: 1. The basilic vein is widely patent in the right upper extremity upper arm on ultrasound. 2. There is occlusion of the axillary and subclavian vein, also thrombus noted at the origin of the right internal jugular vein, with widely patent inflow through the superior vena cava. There are several collateral veins around the shoulder that also fell, along with some redundancy of the superficial veins near the junction with the axillary vein. 3. Successful placement of 20 cm infusion length TPA thrombolysis catheter with patent flow in the SVC from the tip of the catheter. REPORT OF OPERATION: The patient was brought to the angiographic suite in stable condition. Her right upper extremity was prepped and draped in a sterile fashion. A timeout was performed. Sedation was administered without complication. Local anesthesia was administered to the skin and subcutaneous tissue over the right basilic vein after mapping it on the skin with ultrasound. Ultrasound was used to guide access to the basilic vein in the mid upper arm with a microneedle. A wire was passed through this access and the needle was removed and a 4 Turkmen sheath was placed and flushed with saline. Glidewire was advanced through this access and a venogram and central venogram were performed, please see interpretation above. We then advanced the Glidewire 3 to the central system. Initially, it seemed we might of been in a smaller branch and we redirected the wire to what appeared to be the axillary vein subclavian vein into the central system. We placed a 90 cm infusion catheter over the wire and removed the wire. Contrast confirmed we were in the lumen of the vein and there was considerable thrombus. We then flushed with saline and administered 6 mg of TPA through the catheter. We then began a TPA drip through the thrombolysis catheter of 1 mg an hour. The heparin drip was restarted at the sheath at 400 units an hour. The sheath and the catheter was secured with Steri-Strips. Tegaderms and sterile dressings were applied. The patient was then taken to re covery in stable condition. She tolerated the sedation and the procedure well. ESTIMATED BLOOD LOSS: Approximately 5 mL. COMPLICATIONS: None. PLAN: The patient will go to the ICU for neuro monitoring, monitoring for bleeding, lab monitoring. If she does well overnight, we plan to bring her back late tomorrow morning for a planned repeat venogram with possible angioplasty, possible discontinuation of the TPA catheter, possible repositioning of the TPA catheter. The TPA will run at 1 mg an hour through the catheter, the heparin will run at 400 units an hour with no titration through the sheath. The patient to keep her arm straight and very still. If she develops a hematoma, any significant bleeding, any neuro changes, or if her for per Olson's less than 125, we will stop the infusion. We appreciate the opportunity to participate in the care of this patient. TAURUS ALONSO MD Dec 20, 2020 17:59
[2020-12-20] MEDS ORDERED: ONDANSETRON 4MG/2ML VIAL IV PRN (18:00)
[2020-12-20] MEDS ORDERED: PERCOCET 5MG/325MG TAB PO PRN (18:00)
[2020-12-20 18:45] VITALS: BP 141/76
[2020-12-20] MEDS: PERCOCET 5MG/325MG TAB PO PRN (19:31)
[2020-12-20 20:00] VITALS: BP 137/70
[2020-12-20 23:38] LABS: HEMATOCRIT 38.6 % (36.0-47.0); HEMOGLOBIN 12.6 g/dl (12.0-15.5); MEAN CORPUSCULAR HEMOGLOBIN 30.1 pg (27.0-33.0); MEAN CORPUSCULAR HGB CONC 32.6 g/dl (32.0-36.5); MEAN CORPUSCULAR VOLUME 92.3 fl (80.0-96.0); PLATELET COUNT, AUTOMATED 211 10^3/uL (150-450); RED BLOOD COUNT 4.18 10^6/uL (4.00-5.40); WHITE BLOOD COUNT 11.2 10^3/uL (4.0-10.0)
[2020-12-21] VITALS (14 sets, daily range): BP systolic 104–144; BP diastolic 55–86
[2020-12-21 05:36] LABS: HEMATOCRIT 36.5 % (36.0-47.0); HEMOGLOBIN 11.5 g/dl (12.0-15.5); MEAN CORPUSCULAR HEMOGLOBIN 29.2 pg (27.0-33.0); MEAN CORPUSCULAR HGB CONC 31.5 g/dl (32.0-36.5); MEAN CORPUSCULAR VOLUME 92.6 fl (80.0-96.0); PLATELET COUNT, AUTOMATED 251 10^3/uL (150-450); RED BLOOD COUNT 3.94 10^6/uL (4.00-5.40); WHITE BLOOD COUNT 8.4 10^3/uL (4.0-10.0)
[2020-12-21 06:09] LABS: ALBUMIN 2.9 GM/DL (3.2-5.2); ALT/SGPT 30 U/L (12-78); BILIRUBIN,TOTAL 0.3 MG/DL (0.2-1.0); BLOOD UREA NITROGEN 11 MG/DL (7-18); CALCIUM LEVEL 8.3 MG/DL (8.5-10.1); CARBON DIOXIDE LEVEL 29 MEQ/L (21-32); CHLORIDE LEVEL 108 MEQ/L (98-107); GLOMERULAR FILTRATION RATE > 60.0 (>58); GLUCOSE, FASTING 83 MG/DL (70-100); POTASSIUM SERUM 3.4 MEQ/L (3.5-5.1); SODIUM LEVEL 143 MEQ/L (136-145)
[2020-12-21] MEDS: PERCOCET 5MG/325MG TAB PO PRN (06:14)
[2020-12-21] MEDS: CYANOCOBALAMIN 500 MCG TAB PO SCH (08:31)
[2020-12-21] MEDS: SERTRALINE 100 MG TAB PO SCH (08:31)
--- NOTE | 2020-12-21 08:34 | IPNPDOC ---
Text Note Date of Service The patient was seen on 12/21/20. NOTE vascular Surgery Dr Alonso. This is a very pleasant 45-year-old patient with right axillary and subclavian vein after thrombosis after raking snow off her roof on Saturday. S/P placement of thrombolysis catheter Rt axillary and subclavian veins as per Dr Alonso 12/20/20. Tentative plan to repeat venogram today with potential angioplasty. The pt is resting in bed and comfortable. A/O x 3. States swelling in the rt arm is a bit less. No signs of bleeding and no bleeding around catheter site. Arm is elevated on a pillow. Sensation intact to light touch, good director of personnel strength. the hand is warm and well perfused, palpable radial and ulnar pulses. Fibrinogen 173 this am. Hgb 11.5, slightly decreased. NPO for procedure later this AM. Continue to closely monitor for any bleeding. VS,Fishbone, I+O VS, Fishbone, I+O Laboratory Tests 12/20/20 23:12 12/21/20 04:27 Vital Signs Date Time Temp Pulse Resp B/P (MAP) Pulse Ox O2 Delivery O2 Flow Rate FiO2 12/21/20 06:14 14 Room Air 12/21/20 05:00 51 104/58 (73) 96 12/21/20 04:00 97.2 12/20/20 17:40 2 I&O- Last 24 Hours up to 6 AM 12/21/20 06:00 Intake Total 1322 ml Output Total 450 ml Balance 872 ml Gala Villarreal Dec 21, 2020 08:34
[2020-12-21] MEDS: DOCUSATE SODIUM 100MG CAPSULE PO SCH ×2 (09:00→21:00)
--- NOTE | 2020-12-21 10:13 | IPNPDOC ---
Subjective Date Seen The patient was seen on 12/21/20. Subjective Chief Complaint/HPI No issues overnight, no bleeding or hematoma. Fibrinogen OK. Objective Physical Examination General Exam: Positive: Alert, Cooperative, No Acute Distress Eye Exam: Positive: PERRLA, Conjunctiva & lids normal, EOMI; Negative: Sclera icteric ENT Exam: Positive: Atraumatic, Mucous membr. moist/pink, Pharynx Normal Neck Exam: Positive: Supple Chest Exam: Positive: Clear to auscultation, Normal air movement Heart Exam: Positive: Rate Normal, Regular Rhythm, Normal S1, Normal S2; Negative: Murmurs, Rubs Abdomen Exam: Positive: Normal bowel sounds, Soft; Negative: Tenderness, Hepatospenomegaly Extremity Exam: Positive: Swelling (right arm), Other (erythema and swelling of the right arm.); Negative: Cyanosis, Edema Neuro Exam: Positive: Normal Speech, Cranial Nerves 3-12 NL, Reflexes 2+ Psych Exam: Positive: Mental status NL, Mood NL, Oriented x 3 Assessment /Plan Assessment Patient is a 45-year-old female with a past medical history significant depre ssion/anxiety and obesity s/p gastric bypass, kidney stones, who presented to the emergency department on the evening of 12/19/20 with a chief complaint of an onset right upper extremity swelling and diffuse tenderness with slight purple discoloration of the arm for 24 hours. She was found to have thrombosis of right axillary vein and right subclavian vein. Effort thrombosis of her right distal subclavian and proximal axillary veins After raking snow from the roof after a prolonged period. No personal or family h/o thrombosis in the past S/P placement of thrombolysis catheter Rt axillary and subclavian veins as per Dr Alonso 12/20/20. Tentative plan to repeat venogram today with potential angioplasty. Follow Dr Mcnalyl's orders for alteplase and heparin and lab monitoring. If this fails and she continues to have recurrent thrombosis then may need first rib resection. NPO Depression last anxiety Continue home SSRI Obesity BMI of 38.4 Plan/VTE VTE Prophylaxis Ordered?: Yes VS, I&O, 24H, Fishbone Vital Signs/I&O Vital Signs Date Time Temp Pulse Resp B/P (MAP) Pulse Ox O2 Delivery O2 Flow Rate FiO2 12/21/20 08:00 98.0 54 16 108/57 (74) 95 Room Air 12/20/20 17:40 2 I&O- Last 24 Hours up to 6 AM 12/21/20 05:59 Intake Total 1234 ml Output Total 450 ml Balance 784 ml Laboratory Data 24H LABS Laboratory Tests 2 12/20/20 12:15: Activated Partial Thromboplast Time 80.3H 12/20/20 23:12: Nucleated Red Blood Cells % (auto) 0.0, Fibrinogen 248 12/21/20 04:27: Nucleated Red Blood Cells % (auto) 0.0, Fibrinogen 173L, Anion Gap 6L, G lomerular Filtration Rate > 60.0, Calcium Level 8.3L, Total Bilirubin 0.3, Aspartate Amino Transf (AST/SGOT) 18, Alanine Aminotransferase (ALT/SGPT) 30, Alkaline Phosphatase 83, Total Protein 6.0L, Albumin 2.9L, Albumin/Globulin Ratio 0.9L CBC/BMP Laboratory Tests 12/20/20 23:12 12/21/20 04:27 ANDREA MORROW MD Dec 21, 2020 10:13
[2020-12-21] MEDS ORDERED: fentaNYL 100 MCG/2 ML INJECTION (J3010) As Ordered ONE (11:59)
[2020-12-21] MEDS ORDERED: ISOVUE-300 61% 50ML VIAL As Ordered ONE (11:59)
[2020-12-21] MEDS ORDERED: MIDAZOLAM INJ 2MG/2ML VIAL (J2250 PER 1MG) As Ordered ONE (11:59)
[2020-12-21] MEDS ORDERED: LIDOCAINE 1% MDV 20ML VIAL As Ordered ONE (11:59)
[2020-12-21 12:01] LABS: DRVV SCREEN 43.4 SEC
[2020-12-21 12:03] LABS: PTT LUPUS TYPE ANTICOAG SCREEN 1.1 (0-1.2)
[2020-12-21] MEDS ORDERED: HEPARIN DRIP 25,000 UNITS in IV 1 EA IV SCH (12:57)
--- NOTE | 2020-12-21 13:14 | ROOPDOC ---
[facility] Report Of Operation Report of Operation DATE OF PROCEDURE: 12/21/20 PREPROCEDURE DIAGNOSES: Thrombosis right axillary and subclavian vein status post placement TPA thrombolysis catheter POSTPROCEDURE DIAGNOSES: Same PROCEDURE: 1. Planned repeat venogram right upper extremity and central venogram 2. Removal TPA thrombolysis catheter right upper extremity 3. Angioplasty right subclavian vein and axillary vein was 7 x 200 [place] balloon 4. Completion venogram SURGEON: Taurus Alonso MD ANESTHESIA: Moderate intravenous conscious sedation was supervised by Dr. Alonso. The patient was independently monitored by registered nurse assigned to the Department of radiology using automated blood pressure, EKG, and pulse oximetry. The detailed sedation record is permanently stored in the hospital information system. The following is a brief sedation record: Start time 12:36, stop time 12:49, fentanyl when he 5 g IV, Versed 0.5 mg IV, heparin 4000 units IV. CONTRAST: 24 mL Isovue-300 INDICATION FOR PROCEDURE: This is a very pleasant 45-year-old patient who developed effort thrombosis of her right axillary and subclavian vein after raking snow off of the roof on Saturday. She was admitted to the hospital and started on a heparin drip and we saw her yesterday and discussed placement of a TPA thrombolysis catheter with a planned repeat venogram today. Risks benefits and alternatives were both procedures were explained and the patient was agreeable to proceed. Informed consent was obtained. INTERPRETATION: 1. Significant improvement in venous flow through the right axillary vein and subclavian vein, but still mild residual thrombus, nonocclusive. Significant collateral veins are noted over the shoulder. 2. After angioplasty along the length of the vessel back to the superior vena cava, there was a marked improvement inflow with little visible residual thrombus. The collateral veins over the shoulder are no longer filling after angioplasty now that there is improved in-line flow back to the SVC. No extravasation noted. REPORT OF OPERATION: Patient was brought to the angiographic suite in stable condition. Her right upper extremity including the sheath and the TPA thrombolysis catheter were prepped and draped in a sterile fashion. A timeout was performed. Sedation was administered without complication. A venogram was performed through the thrombolysis catheter, please see interpretation above. We also performed a venogram through the sheath. Please see interpretation above. The TPA thrombolysis catheter was removed over a wire. We then redirected the wire out of and overlying collateral and into the true lumen of the axillary vein and subclavian vein. The patient has extensive duplication of her veins around the distal axillary vein. We then advance a 7 x 200 [place] balloon across the subclavian and the axillary vein. Several three-minute inflations were performed along the area. Following this, there was still mild stenosis at the thoracic outlet and within the axillary vein focally. We then angioplasty a second time for three-minute inflations and following this there is a marked improvement inflow back to the SVC and the heart, and the significant collateral veins around the shoulder were no longer filling suggesting improved outflow through the axillary and subclavian veins. We flushed with copious amounts of saline. The sheath was then removed and pressure was held for 15 minutes for good hemostasis. The heparin drip was restarted through the IV at 1500 units an hour. We will continue this until this evening when we will switch the patient to an oral anticoagulation. She tolerated the procedure and the sedation well. ESTIMATED BLOOD LOSS: Approximately 5 mL. COMPLICATIONS: None. PLAN: Continue heparin drip and convert to eliquis this evening. Okay to resume diet and medications per primary team. 2 hours bedrest (okay for head of bed to be elevated) postprocedure and then limited activity right upper extremity for the next 72 hours. No lifting greater than 5 pounds no strenuous exercise right upper extremity. Monitor for hematoma right upper extremity postprocedure. We would like to see the patient back in 3 months in clinic with a repeat venous duplex. It is okay for the patient to transfer out of the ICU from a vascular standpoint. We appreciate the opportunity to participate in the care of this patient. TAURUS ALONSO MD Dec 21, 2020 13:14
[2020-12-21 17:06] LABS: ANTI THROMBIN 3 ANTIGEN IMMUNO 105 % (72-124); ANTI THROMBIN 3 FUNCT ACTIVITY 126 % (75-135); PROTEIN C FUNCTIONAL ACTIVITY 194 % (73-180); PROTEIN S FUNCTIONAL ACTIVITY 63 % (63-140)
[2020-12-21] MEDS: APIXABAN 5 MG TAB (ELIQUIS) PO SCH (21:07)
[2020-12-22 06:00] VITALS: BP 126/74
[2020-12-22 06:55] LABS: HEMATOCRIT 38.6 % (36.0-47.0); MEAN CORPUSCULAR HEMOGLOBIN 29.2 pg (27.0-33.0); MEAN CORPUSCULAR HGB CONC 31.1 g/dl (32.0-36.5); MEAN CORPUSCULAR VOLUME 93.9 fl (80.0-96.0); PLATELET COUNT, AUTOMATED 241 10^3/uL (150-450); RED BLOOD COUNT 4.11 10^6/uL (4.00-5.40); WHITE BLOOD COUNT 9.2 10^3/uL (4.0-10.0)
[2020-12-22 07:39] LABS: ALT/SGPT 31 U/L (12-78); BILIRUBIN,TOTAL 0.2 MG/DL (0.2-1.0); BLOOD UREA NITROGEN 9 MG/DL (7-18); CALCIUM LEVEL 8.3 MG/DL (8.5-10.1); CARBON DIOXIDE LEVEL 26 MEQ/L (21-32); CHLORIDE LEVEL 108 MEQ/L (98-107); CREATININE FOR GFR 0.88 MG/DL (0.55-1.30); GLOMERULAR FILTRATION RATE > 60.0 (>58); GLUCOSE, FASTING 111 MG/DL (70-100); POTASSIUM SERUM 3.8 MEQ/L (3.5-5.1); SODIUM LEVEL 140 MEQ/L (136-145); TOTAL PROTEIN 6.4 GM/DL (6.4-8.2)
[2020-12-22 08:30] VITALS: BP 128/82
[2020-12-22] MEDS: CYANOCOBALAMIN 500 MCG TAB PO SCH (09:31)
[2020-12-22] MEDS: DOCUSATE SODIUM 100MG CAPSULE PO SCH (09:31)
[2020-12-22] MEDS: SERTRALINE 100 MG TAB PO SCH (09:31)
[2020-12-22] MEDS: APIXABAN 5 MG TAB (ELIQUIS) PO SCH (09:32)
--- NOTE | 2020-12-22 09:54 | IPNPDOC ---
Text Note Date of Service The patient was seen on 12/22/20. NOTE Vascular Surgery Dr Alonso. This is a 45-year-old patient with right axillary and subclavian vein after thrombosis after raking snow off her roof on Saturday. S/P placement of thrombolysis catheter Rt axillary and subclavian veins as per Dr Alonso 12/20/20 with angioplasty right subclavian vein and axillary vein, removal of thrombolysis catheter 12/21/20. The pt is resting in bed and comfortable. A/O x 3. States swelling and pain in the rt arm is improved. No signs of bleeding and no bleeding around catheter site. Arm is elevated on a pillow. Sensation intact to light touch, good mainframe systems engineer strength. the hand is warm and well perfused, palpable radial and ulnar pulses. No bleeding. From a vascular surgery standpoint okay for discharge with follow-up venous Doppler ultrasound in 3 months and follow-up appointment in the office to review results. Continue with oral anticoagulation, Eliquis. VS,Fishbone, I+O VS, Fishbone, I+O Laboratory Tests 12/22/20 05:57 Vital Signs Date Time Temp Pulse Resp B/P (MAP) Pulse Ox O2 Delivery O2 Flow Rate FiO2 12/22/20 06:00 96.7 89 20 126/74 (91) 98 Room Air 12/21/20 12:45 2 I&O- Last 24 Hours up to 6 AM 12/22/20 06:00 Intake Total 1370 ml Balance 1370 ml Gala Villarreal Dec 22, 2020 09:54
[2020-12-22] MEDS ORDERED: ELIQ5TAB PO (10:44)
--- NOTE | 2020-12-25 22:54 | DS.PDOC ---
Discharge Summary General Date of Admission Dec 19, 2020 at 23:45 Date of Discharge 12/22/20 Discharge Summary PROCEDURES PERFORMED DURING STAY: Thrombosis right axillary and subclavian vein status post placement TPA thrombolysis catheter on 12/20 Angioplasty right subclavian vein and axillary vein was 7 x 200 [place] balloon 12/21 Venogram right upper extremity and central venogram Removal TPA thrombolysis catheter right upper extremity DISCHARGE DIAGNOSES: Effort thrombosis of right axillary and Subclaviun vein. Obesity s/p gastric bypass surgery Anxiety and depression Kidney stones COMPLICATIONS/CHIEF COMPLAINT: Deep Vein Thrombosis Of The R Upper Extremity. HOSPITAL COURSE: Patient is a 45-year-old female with a past medical history significant depression/anxiety and obesity s/p gastric bypass, kidney stones, who presented to the emergency department on the evening of 12/19/20 with a chief complaint of an onset right upper extremity swelling and diffuse tenderness with slight purple discoloration of the arm for 24 hours. She was found to have thrombosis of right axillary vein and right subclavian vein. Effort thrombosis of her right distal subclavian and proximal axillary veins After raking snow from the roof after a prolonged period. No personal or family h/o thrombosis in the past S/P placement of TPA thrombolysis catheter Rt axillary and subclavian veins and angioplasty of right axillary and subclaviun vein. Arian. Follow up with Dr Rapp for 3 months Depression and anxiety Continue home SSRI Obesity s/p gastric bypass surgery BMI of 38.4 DISCHARGE MEDICATIONS: Please see below. ALLERGIES: Please see below. PHYSICAL EXAMINATION ON DISCHARGE: VITAL SIGNS: Please see below. General Exam: Positive: Alert, Cooperative, No Acute Distress Eye Exam: Positive: PERRLA, Conjunctiva & lids normal, EOMI; Negative: Sclera icteric ENT Exam: Positive: Atraumatic, Mucous membr. moist/pink, Pharynx Normal Neck Exam: Positive: Supple Chest Exam: Positive: Clear to auscultation, Normal air movement Heart Exam: Positive: Rate Normal, Regular Rhythm, Normal S1, Normal S2; Negative: Murmurs, Rubs Abdomen Exam: Positive: Normal bowel sounds, Soft; Negative: Tenderness, Hepatospenomegaly Extremity Exam: Positive: Swelling (right arm), Other (erythema and swelling of the right arm.); Negative: Cyanosis, Edema Neuro Exam: Positive: Normal Speech, Cranial Nerves 3-12 NL, Reflexes 2+ Psych Exam: Positive: Mental status NL, Mood NL, Oriented x 3 LABORATORY DATA: Please see below. IMAGING: US of right upper extremity: FINDINGS: Right deep veins: The distal right subclavian and proximal axillary veins are occluded. The right brachial vein is patent. Normal Doppler waveforms. Normal compressibility and/or augmentation response. Right superficial veins: Visualized cephalic and basilic veins are patent without thrombus. Soft tissues: Edema. 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 ACTIVITY: [As tolerated]. DIET: As tolerated DISPOSITION: 01 Home, Self-Care. DISCHARGE INSTRUCTIONS: PMD in [address] Mcnally in 3 months. ITEMS TO FOLLOWUP ON ON OUTPATIENT: Coagulation work up. DISCHARGE CONDITION: [Stable]. TIME SPENT ON DISCHARGE: 35 minutes. Vital Signs/I&Os Vital Signs Date Time Temp Pulse Resp B/P (MAP) Pulse Ox O2 Delivery O2 Flow Rate FiO2 12/22/20 08:30 96.3 70 14 128/82 (97) 96 Room Air 12/21/20 12:45 2 Discharge Medications Scheduled Apixaban (Eliquis) 5 Mg Tablet, 5 MG PO ASDIRECTED 10 MG (2 TABS) TWICE PER DAY FOR 7 DAYS THEN 5 MG (1 TAB) TWICE PER DAY Cyanocobalamin (Vitamin B-12) (Vitamin B-12) 500 Mcg Tablet, 500 MCG PO QHS, (Reported) Fexofenadine/Pseudoephedrine (Angela-D 24 Hour Tablet) 1 Each Tab.er.24h, 1 TAB PO QHS, (Reported) Folic Acid/Multivit-Min/Lutein (Multi-Vitamin Gummies) 1 Each Tab.chew, 2 CHW PO QHS, (Reported) Sertraline Hcl (Zoloft) 100 Mg Tablet, 100 MG PO QHS, (Reported) Scheduled PRN Acetaminophen (Tylenol Extra Strength) 500 Mg Tablet, 1,000 MG PO Q6H PRN for PAIN / FEVER, (Reported) Allergies Coded Allergies: Sulfa (Sulfonamide Antibiotics) (Verified Allergy, Intermediate, 04/27/19) rash ANDREA MORROW MD Dec 25, 2020 22:49
[2020-12-26 14:11] LABS: CARDIOLIPIN IGA ANTIBODY <9 APL U/mL (0-11); CARDIOLIPIN IGG ANTIBODY <9 GPL U/mL (0-14); CARDIOLIPIN IGM ANTIBODY <9 MPL U/mL (0-12); PHOSPHOLIPIDS LEVEL 237 mg/dL (150-250)
== END 2020-12-22 12:55 | disposition home or self-care (01) | DRG 254 ==
LOC: M ED 18:16 → M ED INP 23:45 → M MSPAV 12-20 02:41 → M ICU 12-20 17:22 → M MS5PR 12-21 17:48
PROVIDERS: ADMIT Internal Medicine; ATTEND Internal Medicine Nephrology
PROC: 3E05317 Introduction of Other Thrombolytic into Peripheral Artery, Percutaneous Approach (ICD-10-PCS; 2020-12-20)
PROC: B548ZZA Ultrasonography of Superior Vena Cava, Guidance (ICD-10-PCS; 2020-12-20)
PROC: 02H633Z Insertion of Infusion Device into Right Atrium, Percutaneous Approach (ICD-10-PCS; principal; 2020-12-20 16:35)
PROC: B51W1ZZ Fluoroscopy of Dialysis Shunt/Fistula using Low Osmolar Contrast (ICD-10-PCS; 2020-12-21)
PROC: 05WY37Z Revision of Autologous Tissue Substitute in Upper Vein, Percutaneous Approach (ICD-10-PCS; 2020-12-21)
PROC: 03WY37Z Revision of Autologous Tissue Substitute in Upper Artery, Percutaneous Approach (ICD-10-PCS; 2020-12-21)
DX: I82.A11 Acute embolism and thrombosis of right axillary vein (principal); I82.B11 Acute embolism and thrombosis of right subclavian vein; E66.9 Obesity, unspecified; F41.9 Anxiety disorder, unspecified; F32.9 Major depressive disorder, single episode, unspecified; N20.0 Calculus of kidney; Z79.899 Other long term (current) drug therapy; Z88.2 Allergy status to sulfonamides; J45.909 Unspecified asthma, uncomplicated; K21.9 Gastro-esophageal reflux disease without esophagitis; Z68.38 Body mass index [BMI] 38.0-38.9, adult

== ENCOUNTER → 2021-01-11 | Outpatient (CLI) | payer OTHER ==
[~2021-01-11] MED LIST changes: +ACET-897 PO; +ALLE24TA7 PO; +CYAN500T3 PO; +ELIQ5TAB PO; +MULTCHW12 PO; +SERTRALINE; +ZOLO100T PO
--- NOTE | 2021-01-11 10:33 | REP ---
INDICATION: RT AXILLARY VEIN THROMBUS COMPARISON: None. TECHNIQUE: Vidales scale and color Doppler evaluation using linear high frequency transducer. FINDINGS: Ultrasound examination of the right upper extremity demonstrates normal flow through the visualized jugular, subclavian, axillary, basilic, cephalic, and 3 brachial veins. Previously suggested thrombus in the right axillary vein has resolved. IMPRESSION: Normal examination. Previously noted thrombus in the axillary vein resolved. <Electronically signed by Nicholas Christianson > 01/11/21 1023
== END ==
LOC: M RAD 09:40
PROVIDERS: ATTEND Surgery Vascular Surgery
DX: I82.A11 Acute embolism and thrombosis of right axillary vein (principal); I82.B11 Acute embolism and thrombosis of right subclavian vein

== ENCOUNTER → 2021-06-27 | Outpatient (REF) | payer OTHER ==
[~2021-06-27] MED LIST changes: -OXYC1TAB15 PO; +OXYC7.5T3 PO
== END ==
LOC: M LAB REF 15:37
PROVIDERS: ATTEND Surgery
DX: D17.21 Benign lipomatous neoplasm of skin and subcutaneous tissue of right arm (principal)

== ENCOUNTER → 2022-05-29 | Outpatient (CLI) | payer OTHER ==
[2022-05-29 09:00] LABS: HEMATOCRIT 43.2 % (36.0-47.0); MEAN CORPUSCULAR HEMOGLOBIN 29.3 pg (27.0-33.0); MEAN CORPUSCULAR HGB CONC 32.4 g/dl (32.0-36.5); MEAN CORPUSCULAR VOLUME 90.4 fl (80.0-96.0); PLATELET COUNT, AUTOMATED 317 10^3/uL (150-450); RED BLOOD COUNT 4.78 10^6/uL (4.00-5.40); WHITE BLOOD COUNT 9.5 10^3/uL (4.0-10.0)
[2022-05-29 09:29] LABS: ALBUMIN 3.4 GM/DL (3.2-5.2); ALT/SGPT 29 U/L (12-78); BILIRUBIN,TOTAL 0.3 MG/DL (0.2-1.0); BLOOD UREA NITROGEN 10 MG/DL (7-18); CARBON DIOXIDE LEVEL 27 MEQ/L (21-32); CHLORIDE LEVEL 108 MEQ/L (98-107); CHOLESTEROL LEVEL 232 MG/DL (<200); CHOLESTEROL RISK RATIO 5.658 (<5); CREATININE FOR GFR 0.81 MG/DL (0.55-1.30); GLOMERULAR FILTRATION RATE > 60.0 (>58); GLUCOSE, FASTING 88 MG/DL (70-100); HDL CHOLESTEROL 41 MG/DL (>40); LDL CHOLESTEROL 150 MG/DL (<100); NON-HDL-C 191 MG/DL; SODIUM LEVEL 139 MEQ/L (136-145); TOTAL PROTEIN 6.9 GM/DL (6.4-8.2); TRIGLYCERIDES LEVEL 205 MG/DL (<150)
[2022-05-29 09:56] LABS: HEMOGLOBIN A1c 5.4 %
[2022-05-29 10:05] LABS: TOTAL 25(OH) VITAMIN D 22.7 NG/ML (30.0-100.0)
== END ==
LOC: M RAD 08:11
PROVIDERS: ATTEND Family Medicine
DX: R53.83 Other fatigue (principal)

== ENCOUNTER → 2022-08-06 | Outpatient (CLI) | payer OTHER | LOC: M RAD 10:19 | PROVIDERS: ATTEND Family Medicine | DX: R07.89 Other chest pain (principal) ==

== ENCOUNTER → 2023-01-10 | Outpatient (REF) | payer OTHER | LOC: M LAB REF 17:26 | PROVIDERS: ATTEND Surgery | DX: E65 Localized adiposity (principal) ==

== ENCOUNTER → 2023-03-13 | Outpatient (CLI) | payer OTHER | LOC: M RAD 15:20 | PROVIDERS: ATTEND Physician Assistant | DX: Z86.718 Personal history of other venous thrombosis and embolism (principal) ==

== ENCOUNTER → 2023-05-28 | Outpatient (CLI) | payer OTHER | LOC: M WHC 08:56 | PROVIDERS: ATTEND Obstetrics & Gynecology | DX: R92.8 Other abnormal and inconclusive findings on diagnostic imaging of breast (principal) ==

== ENCOUNTER → 2023-06-18 | Outpatient (CLI) | payer OTHER | LOC: M SOG 09:36 | PROVIDERS: ATTEND Orthopaedic Surgery Hand Surgery | DX: M79.645 Pain in left finger(s) (principal) ==

== ENCOUNTER → 2024-01-17 | Outpatient (REF) | payer OTHER | LOC: M LAB REF 21:37 | PROVIDERS: ATTEND Physician Assistant | DX: R30.0 Dysuria (principal); B95.2 Enterococcus as the cause of diseases classified elsewhere ==

== ENCOUNTER → 2024-02-02 | Outpatient (CLI) | payer OTHER ==
[2024-02-02 11:33] LABS: FREE T4 0.72 NG/DL (0.89-1.76)
[2024-02-02 11:34] LABS: FOLLICLE STIMULATING HORMONE 21.4 mIU/ML; THYROID STIMULATING HORMONE 1.453 uIU/ML (0.55-4.78)
[2024-02-03 06:27] LABS: LUTEINIZING HORMONE 7.2 mIU/ML
== END ==
LOC: M LAB 10:39
PROVIDERS: ATTEND Obstetrics & Gynecology
DX: N92.1 Excessive and frequent menstruation with irregular cycle (principal)

== ENCOUNTER → 2024-02-02 | Outpatient (CLI) | payer OTHER ==
[~2024-02-02] MED LIST changes: +EFFE75CA2 PO; +HYDR-3713 PO; +KETO10TAB PO; +ONDA4TAB6 PO
[2024-02-02 11:08] LABS: HEMATOCRIT 46.1 % (36.0-47.0); HEMOGLOBIN 14.8 g/dl (12.0-15.5); MEAN CORPUSCULAR HGB CONC 32.1 g/dl (32.0-36.5); MEAN CORPUSCULAR VOLUME 93.5 fl (80.0-96.0); PLATELET COUNT, AUTOMATED 349 10^3/uL (150-450); RED BLOOD COUNT 4.93 10^6/uL (4.00-5.40); WHITE BLOOD COUNT 6.4 10^3/uL (4.0-10.0)
[2024-02-02 11:45] LABS: ALBUMIN 3.7 G/DL (3.2-5.2); ALKALINE PHOSPHATASE 71 U/L (46-116); ALT/SGPT 19 U/L (7.0-40); AST/SGOT 12 U/L (<34); BILIRUBIN,TOTAL 0.3 MG/DL (0.3-1.2); BLOOD UREA NITROGEN 10 MG/DL (9-23); CALCIUM LEVEL 9.1 MG/DL (8.5-10.1); CARBON DIOXIDE LEVEL 30 MMOL/L (20-31); CHLORIDE LEVEL 106 MMOL/L (98-107); CHOLESTEROL LEVEL 191 MG/DL (<200); CHOLESTEROL RISK RATIO 3.21 (<5); CREATININE FOR GFR 0.92 MG/DL (0.55-1.30); GLOMERULAR FILTRATION RATE > 60.0 (>58); GLUCOSE, FASTING 80 MG/DL (60-100); HDL CHOLESTEROL 59.5 MG/DL (>40); LDL CHOLESTEROL 108.9 MG/DL (<100); NON-HDL-C 131.5 MG/DL; POTASSIUM SERUM 4.5 MMOL/L (3.5-5.1); SODIUM LEVEL 140 MMOL/L (136-145); TOTAL PROTEIN 6.4 G/DL (5.7-8.2); TRIGLYCERIDES LEVEL 113 MG/DL (<150)
[2024-02-02 11:46] LABS: HEMOGLOBIN A1c 4.6 % (4.0-6.0); THYROID STIMULATING HORMONE 1.605 uIU/ML (0.55-4.78); TOTAL 25(OH) VITAMIN D 34.3 NG/ML (20.0-100.0)
== END ==
LOC: M LAB 10:36
PROVIDERS: ATTEND Family Medicine
DX: I10 Essential (primary) hypertension (principal); R53.83 Other fatigue; E03.9 Hypothyroidism, unspecified

== ENCOUNTER 2024-02-04 10:38 | Emergency (ER) | payer OTHER ==
[~2024-02-04] VITALS: Ht 162.6 cm; Wt 93.5 kg
[~2024-02-04 10:38] MED LIST changes: -EFFE75CA2 PO; -HYDR-3713 PO; -KETO10TAB PO; -ONDA4TAB6 PO
[2024-02-04] MEDS ORDERED: EFFE75CA2 PO (10:54)
[2024-02-04 11:31] LABS: APPEARANCE, URINE CLEAR (CLEAR); BACTERIA, URINE AUTO 1+ (NEGATIVE); BILIRUBIN, URINE AUTO NEGATIVE (NEGATIVE); BLOOD, URINE BLOOD 2+ (NEGATIVE); COLOR, URINE STRAW (YELLOW); GLUCOSE, URINE (UA) AUTO NEGATIVE (NEGATIVE); KETONE, URINE AUTO NEGATIVE (NEGATIVE); LEUKOCYTE ESTERASE, URINE AUTO NEGATIVE (NEGATIVE); MUCUS, URINE SMALL (NEGATIVE); NITRITE, URINE AUTO NEGATIVE (NEGATIVE); PROTEIN, URINE AUTO NEGATIVE (NEGATIVE); RBC, URINE AUTO 2 /HPF (0-3); SPECIFIC GRAVITY URINE AUTO 1.003 (1.002-1.035); SQUAMOUS EPITHELIAL CELL UR AU 4 /HPF (0-6); UROBILINOGEN, URINE AUTO 0.2 mg/dL (0.0-2.0); WBC, URINE AUTO 2 /HPF (0-3)
[2024-02-04 12:15] LABS: BASO % 0.1 % (0.0-1.0); EOS % 0.1 % (0.0-3.0); HEMATOCRIT 45.6 % (36.0-47.0); HEMOGLOBIN 15.1 g/dl (12.0-15.5); LYMPH # 2.2 10^3/uL (1.5-5.0); LYMPH % 18.1 % (24.0-44.0); MEAN CORPUSCULAR HEMOGLOBIN 29.7 pg (27.0-33.0); MEAN CORPUSCULAR HGB CONC 33.1 g/dl (32.0-36.5); MEAN CORPUSCULAR VOLUME 89.8 fl (80.0-96.0); MONO # 0.7 10^3/uL (0.0-0.8); MONO % 5.9 % (2.0-8.0); NEUTROPHILS % 75.5 % (36.0-66.0); PLATELET COUNT, AUTOMATED 414 10^3/uL (150-450); RED BLOOD COUNT 5.08 10^6/uL (4.00-5.40)
[2024-02-04 12:44] LABS: LIPASE 48 U/L (12-53)
[2024-02-04 12:52] LABS: ALBUMIN 4.1 G/DL (3.2-5.2); ALKALINE PHOSPHATASE 79 U/L (46-116); ALT/SGPT 25 U/L (7.0-40); AST/SGOT 18 U/L (<34); BILIRUBIN,DIRECT 0.1 MG/DL (<0.4); BILIRUBIN,TOTAL 0.4 MG/DL (0.3-1.2); BLOOD UREA NITROGEN 10 MG/DL (9-23); CALCIUM LEVEL 9.7 MG/DL (8.5-10.1); CARBON DIOXIDE LEVEL 26 MMOL/L (20-31); CHLORIDE LEVEL 103 MMOL/L (98-107); CREATININE FOR GFR 0.92 MG/DL (0.55-1.30); GLOMERULAR FILTRATION RATE > 60.0 (>58); GLUCOSE, FASTING 98 MG/DL (60-100); POTASSIUM SERUM 4.5 MMOL/L (3.5-5.1); SODIUM LEVEL 138 MMOL/L (136-145); TOTAL PROTEIN 6.9 G/DL (5.7-8.2)
[2024-02-04] MEDS: NS 1,000 ML IV ONE (13:05)
[2024-02-04] MEDS: KETOROLAC 30 MG/ML 1ML VIAL IV ONE (13:05)
[2024-02-04] MEDS: ONDANSETRON 4MG 2ML VIAL IV ONE (13:35)
[2024-02-04] MEDS ORDERED: ONDA4TAB6 PO (14:02)
[2024-02-04] MEDS ORDERED: FLOM0.4C39 PO (14:02)
[2024-02-04] MEDS ORDERED: HYDR-3713 PO (14:02)
[2024-02-04] MEDS ORDERED: KETO10TAB PO (14:02)
[2024-02-04 14:18] VITALS: BP 147/91; TEMP 96.1; O2SAT 100
== END 2024-02-04 14:22 | disposition home or self-care (01) ==
LOC: M ED 10:38
DX: N20.2 Calculus of kidney with calculus of ureter (principal); K21.9 Gastro-esophageal reflux disease without esophagitis; F41.9 Anxiety disorder, unspecified; F32.A Depression, unspecified; J45.909 Unspecified asthma, uncomplicated; D64.9 Anemia, unspecified; Z86.718 Personal history of other venous thrombosis and embolism; Z98.84 Bariatric surgery status; Z88.2 Allergy status to sulfonamides; Z79.1 Long term (current) use of non-steroidal anti-inflammatories (NSAID); Z79.83 Long term (current) use of bisphosphonates; Z79.899 Other long term (current) drug therapy
CPT/HCPCS: 74176; 80048; 80076; 81001; 83690; 85025; 96361; 96374; 96375; 99284; J1885; J2405

== ENCOUNTER → 2024-03-12 | Outpatient (CLI) | payer OTHER ==
[~2024-03-12] MED LIST changes: +EFFE75CA2 PO; +HYDR-3713 PO; +KETO10TAB PO; +ONDA4TAB6 PO
[2024-03-12 18:33] LABS: APPEARANCE, URINE CLEAR (CLEAR); BACTERIA, URINE AUTO NEGATIVE (NEGATIVE); BILIRUBIN, URINE AUTO NEGATIVE (NEGATIVE); BLOOD, URINE BLOOD 1+ (NEGATIVE); COLOR, URINE YELLOW (YELLOW); GLUCOSE, URINE (UA) AUTO NEGATIVE (NEGATIVE); KETONE, URINE AUTO NEGATIVE (NEGATIVE); LEUKOCYTE ESTERASE, URINE AUTO NEGATIVE (NEGATIVE); NITRITE, URINE AUTO NEGATIVE (NEGATIVE); PROTEIN, URINE AUTO NEGATIVE (NEGATIVE); RBC, URINE AUTO 0 /HPF (0-3); SPECIFIC GRAVITY URINE AUTO 1.008 (1.002-1.035); SQUAMOUS EPITHELIAL CELL UR AU 0 /HPF (0-6); UROBILINOGEN, URINE AUTO 0.2 mg/dL (0.0-2.0); WBC, URINE AUTO 1 /HPF (0-3)
== END ==
LOC: M RAD 16:06
PROVIDERS: ATTEND Physician Assistant
DX: N20.0 Calculus of kidney (principal)

== ENCOUNTER → 2024-03-20 | Outpatient (CLI) | payer OTHER ==
[~2024-03-20] MED LIST changes: +AMOX875T2; +OXYB5TAB14 PO; +VENL37.598 PO
[2024-03-20 18:00] LABS: APPEARANCE, URINE CLEAR (CLEAR); BACTERIA, URINE AUTO NEGATIVE (NEGATIVE); BILIRUBIN, URINE AUTO NEGATIVE (NEGATIVE); BLOOD, URINE BLOOD NEGATIVE (NEGATIVE); COLOR, URINE YELLOW (YELLOW); GLUCOSE, URINE (UA) AUTO NEGATIVE (NEGATIVE); KETONE, URINE AUTO NEGATIVE (NEGATIVE); LEUKOCYTE ESTERASE, URINE AUTO NEGATIVE (NEGATIVE); NITRITE, URINE AUTO NEGATIVE (NEGATIVE); PROTEIN, URINE AUTO NEGATIVE (NEGATIVE); RBC, URINE AUTO 1 /HPF (0-3); SPECIFIC GRAVITY URINE AUTO 1.008 (1.002-1.035); SQUAMOUS EPITHELIAL CELL UR AU 2 /HPF (0-6); UROBILINOGEN, URINE AUTO 0.2 mg/dL (0.0-2.0); WBC, URINE AUTO 1 /HPF (0-3)
== END ==
LOC: M RAD 16:55
PROVIDERS: ATTEND Physician Assistant
DX: N20.1 Calculus of ureter (principal)

== ENCOUNTER → 2024-07-21 | Outpatient (REF) | payer OTHER ==
[~2024-07-21] MED LIST changes: +ALLE180T33 PO; +ERGO500029 PO; +ONDA-282 PO; -ONDA4TAB6 PO; +TAMS1CAP17 PO
[2024-07-21 18:21] LABS: APPEARANCE, URINE HAZY (CLEAR); BACTERIA, URINE AUTO 1+ (NEGATIVE); BILIRUBIN, URINE AUTO NEGATIVE (NEGATIVE); BLOOD, URINE BLOOD 3+ (NEGATIVE); COLOR, URINE AMBER (YELLOW); GLUCOSE, URINE (UA) AUTO NEGATIVE (NEGATIVE); KETONE, URINE AUTO NEGATIVE (NEGATIVE); LEUKOCYTE ESTERASE, URINE AUTO 1+ (NEGATIVE); NITRITE, URINE AUTO POSITIVE (NEGATIVE); PROTEIN, URINE AUTO NEGATIVE (NEGATIVE); RBC, URINE AUTO 40 /HPF (0-3); SPECIFIC GRAVITY URINE AUTO 1.009 (1.002-1.035); SQUAMOUS EPITHELIAL CELL UR AU 1 /HPF (0-6); WBC, URINE AUTO 41 /HPF (0-3)
== END ==
LOC: M SMT 17:32
PROVIDERS: ATTEND Physician Assistant
DX: R30.0 Dysuria (principal)

== ENCOUNTER → 2024-10-27 | Outpatient (CLI) | payer OTHER ==
[2024-10-27 12:37] LABS: HEMATOCRIT 46.9 % (36.0-47.0); HEMOGLOBIN 15.2 g/dl (12.0-15.5); MEAN CORPUSCULAR HEMOGLOBIN 29.3 pg (27.0-33.0); MEAN CORPUSCULAR HGB CONC 32.4 g/dl (32.0-36.5); MEAN CORPUSCULAR VOLUME 90.5 fl (80.0-96.0); PLATELET COUNT, AUTOMATED 319 10^3/uL (150-450); RED BLOOD COUNT 5.18 10^6/uL (4.00-5.40); WHITE BLOOD COUNT 7.9 10^3/uL (4.0-10.0)
[2024-10-27 12:58] LABS: ALBUMIN 3.8 G/DL (3.2-5.2); ALKALINE PHOSPHATASE 96 U/L (35-104); ALT/SGPT 28 U/L (7.0-40); AST/SGOT 20 U/L (<34); BILIRUBIN,TOTAL 0.4 MG/DL (0.3-1.2); BLOOD UREA NITROGEN 16 MG/DL (9-23); CARBON DIOXIDE LEVEL 32 MMOL/L (20-31); CHLORIDE LEVEL 103 MMOL/L (98-107); CHOLESTEROL LEVEL 296 MG/DL (<200); CHOLESTEROL RISK RATIO 5.43 (<5); CREATININE FOR GFR 0.97 MG/DL (0.55-1.30); GLOMERULAR FILTRATION RATE > 60.0 (>58); GLUCOSE, FASTING 76 MG/DL (60-100); HDL CHOLESTEROL 54.5 MG/DL (>40); LDL CHOLESTEROL 208.7 MG/DL (<100); NON-HDL-C 241.5 MG/DL; POTASSIUM SERUM 4.4 MMOL/L (3.5-5.1); SODIUM LEVEL 141 MMOL/L (136-145); TOTAL PROTEIN 7.3 G/DL (5.7-8.2); TRIGLYCERIDES LEVEL 164 MG/DL (<150)
[2024-10-27 12:59] LABS: THYROID STIMULATING HORMONE 1.986 uIU/ML (0.55-4.78)
[2024-10-27 13:00] LABS: TOTAL 25(OH) VITAMIN D 34.9 NG/ML (20.0-100.0)
[2024-10-27 13:08] LABS: HEMOGLOBIN A1c 5.3 % (4.0-6.0)
== END ==
LOC: M WUC 09:03
PROVIDERS: ATTEND Family Medicine
DX: I10 Essential (primary) hypertension (principal); R53.83 Other fatigue; E03.9 Hypothyroidism, unspecified

== ENCOUNTER → 2025-01-14 | Outpatient (CLI) | payer OTHER | LOC: M SLEEP HO 11:01 | PROVIDERS: ATTEND Nurse Practitioner Adult Health | DX: G47.30 Sleep apnea, unspecified (principal) ==

== ENCOUNTER → 2025-05-03 | Outpatient (CLI) | payer OTHER ==
[~2025-05-03] MED LIST changes: -FLOM0.4C39 PO; +TAMS-18 PO
== END ==
LOC: M RAD 10:30
PROVIDERS: ATTEND Physician Assistant
DX: Z87.442 Personal history of urinary calculi (principal)

== ENCOUNTER → 2025-06-01 | Outpatient (REF) | payer OTHER ==
[2025-06-01 13:40] LABS: AMORPHOUS SEDIMENT SMALL (NEGATIVE); APPEARANCE, URINE HAZY (CLEAR); BACTERIA, URINE AUTO NEGATIVE (NEGATIVE); BILIRUBIN, URINE AUTO NEGATIVE (NEGATIVE); BLOOD, URINE BLOOD NEGATIVE (NEGATIVE); CALCIUM OXALATE CRYSTALS LARGE; GLUCOSE, URINE (UA) AUTO NEGATIVE (NEGATIVE); KETONE, URINE AUTO NEGATIVE (NEGATIVE); LEUKOCYTE ESTERASE, URINE AUTO NEGATIVE (NEGATIVE); MUCUS, URINE SMALL (NEGATIVE); NITRITE, URINE AUTO NEGATIVE (NEGATIVE); PROTEIN, URINE AUTO NEGATIVE (NEGATIVE); RBC, URINE AUTO 1 /HPF (0-3); SPECIFIC GRAVITY URINE AUTO 1.014 (1.002-1.035); SQUAMOUS EPITHELIAL CELL UR AU 2 /HPF (0-6); UROBILINOGEN, URINE AUTO 0.2 mg/dL (0.0-2.0); WBC, URINE AUTO 0 /HPF (0-3)
== END ==
LOC: M SMT 12:50
PROVIDERS: ATTEND Physician Assistant
DX: N39.0 Urinary tract infection, site not specified (principal)

== ENCOUNTER → 2025-07-01 | Outpatient (CLI) | payer OTHER ==
[2025-07-01 18:18] LABS: APPEARANCE, URINE CLEAR (CLEAR); BACTERIA, URINE AUTO 1+ (NEGATIVE); BILIRUBIN, URINE AUTO NEGATIVE (NEGATIVE); BLOOD, URINE BLOOD 3+ (NEGATIVE); GLUCOSE, URINE (UA) AUTO NEGATIVE (NEGATIVE); KETONE, URINE AUTO NEGATIVE (NEGATIVE); LEUKOCYTE ESTERASE, URINE AUTO 2+ (NEGATIVE); NITRITE, URINE AUTO POSITIVE (NEGATIVE); PROTEIN, URINE AUTO NEGATIVE (NEGATIVE); RBC, URINE AUTO 71 /HPF (0-3); SPECIFIC GRAVITY URINE AUTO 1.006 (1.002-1.035); SQUAMOUS EPITHELIAL CELL UR AU 1 /HPF (0-6); UROBILINOGEN, URINE AUTO 4.0 mg/dL (0.0-2.0); WBC, URINE AUTO 100 /HPF (0-3)
== END ==
LOC: M LAB 16:39
PROVIDERS: ATTEND Physician Assistant
DX: R39.9 Unspecified symptoms and signs involving the genitourinary system (principal)

== ENCOUNTER → 2025-09-07 | Outpatient (REF) | payer OTHER | LOC: M LAB REF 11:59 | DX: Z86.711 Personal history of pulmonary embolism (principal) ==

== ENCOUNTER → 2025-09-07 | Outpatient (CLI) | payer OTHER | LOC: M WUC 08:55 | DX: M25.511 Pain in right shoulder (principal) ==